=== PATIENT | female | born 1950 | race Caucasian/White ===

== ENCOUNTER 2016-07-15 12:33 | Inpatient (IN) | payer MEDICARE, OTHER ==
[~2016-07-15] VITALS: Ht 165.1 cm; Wt 70.4 kg
[~2016-07-15 12:33] MED LIST: ALBU1.25 NEB; ALBU2.5V5 NEB; ALBU8.5H8 INH; ALPR0.25 PO; ALPR1TAB6 PO; BUSP10TA PO; CALC-30 PO; CITA40TA5 PO; COLE625T12 PO; CYAN10005 PO; DOCU-109 PO; ENOX80DI3 SQ; FEXO-149 PO; FOLI1TAB16 PO; HYDR-2758 PO; HYDR50CA2 PO; LAMO100T5 PO; MECL25TA3 PO; MIRT30TA3 PO; MONT10TA6 PO; MULT1TAB52 PO; Nicotine TD; PRAZ1CAP2 PO; QUET100T4 PO; QUET200T6 PO; SERT100T8 PO; TRAV5DRO EACHEYE; WARF7.5T48 PO; Warfarin Sodium MC; ZOLP12.54 PO; ZOLP5TAB PO; ZOLP5TAB5 PO
--- NOTE | 2016-07-15 13:20 | RAD ---
Indication: Cough. Time of exam 1312 hours. Correlation is made with prior study from 02/12/2016. The heart size is normal. The lungs are clear. No effusion or pneumothorax is seen. Postop changes to the right humerus are noted. Impression: No acute cardiopulmonary process is detected.
--- NOTE | 2016-07-15 13:24 | EKG ---
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
[2016-07-15 13:32] LABS: BASO # 0.1 x10^3/uL (0.0-0.2); BASO % 1 % (0-3); EOS % 0 % (0-3); HEMATOCRIT 42.5 % (36.0-47.0); HEMOGLOBIN 14.5 g/dL (12.0-15.5); LYMPH # 0.7 x10^3/uL (1.0-4.8); LYMPH % 9 % (24-48); MEAN CORPUSCULAR HEMOGLOBIN 34 pg (25-35); MEAN CORPUSCULAR HGB CONC 34 g/dL (31-37); MEAN CORPUSCULAR VOLUME 99 fL (79-100); MONO # 0.2 x10^3/uL (0.0-1.1); MONO % 2 % (0-9); NEUT # 7.2 x10^3uL (1.8-7.7); NEUT % 88 % (31-73); PLATELET COUNT 297 x10^3/uL (140-400); RED BLOOD COUNT 4.29 x10^6/uL (3.50-5.40); RED CELL DISTRIBUTION WIDTH 14.7 % (11.5-14.5); WHITE BLOOD COUNT 8.1 x10^3/uL (4.0-11.0)
[2016-07-15 13:48] LABS: ALBUMIN 3.6 g/dL (3.4-5.0); ALBUMIN/GLOBULIN RATIO 0.9 (1.0-1.7); CALCIUM 9.4 mg/dL (8.5-10.1); CREATININE 1.1 mg/dL (0.6-1.0); POTASSIUM 4.1 mmol/L (3.5-5.1); TOTAL BILIRUBIN 0.3 mg/dL (0.2-1.0); TOTAL PROTEIN 7.8 g/dL (6.4-8.2)
[2016-07-15] MEDS ORDERED: methylPREDNISolone SOD SUCC PF 125 MG/2 ML VIAL. IV ONE (15:30)
[2016-07-15] MEDS ORDERED: AZITHROMYCIN 500 MG in IV NORMAL SALINE 250ML 250 ML IV ONE (15:30)
[2016-07-15] MEDS ORDERED: IV NORMAL SALINE 50ML 50 ML ONE (17:21)
[2016-07-15] MEDS ORDERED: cefTRIAXone SODIUM 1 GM VIAL IV ONE (17:21)
[2016-07-15] MEDS ORDERED: IV NORMAL SALINE 250ML 250 ML ONE (17:21)
[2016-07-15] MEDS ORDERED: AZITHROMYCIN 500 MG VIAL. IV ONE (17:21)
[2016-07-15 19:22] VITALS: BP 124/82
--- NOTE | 2016-07-15 21:40 | NUR ---
The patient, VIDHI TRAN, 66 y/o, F admitted by DANIEL KAPLAN MD, was given written information regarding hospital policies, unit procedures and contact persons. Pt arrived to room 121 via gurney, accompanied by [facility] and ED staff. Dx: COPD. POC discussed, V/U. Call light within reach. PMH reviewed with pt, but pt is unsure of home meds, only has partial list. Will check with in AM. Valuables were checked and logged. Left in room with patient.
[2016-07-15 22:18] VITALS: BP 170/85
[2016-07-15] MEDS: ZOLPIDEM 5 MG TABLET. PO PRN (22:47)
[2016-07-16] MEDS ORDERED: NICO1PAT21 TP (00:48)
[2016-07-16] MEDS ORDERED: LATA2.5D2 EACHEYE (00:48)
[2016-07-16] MEDS ORDERED: GUAI-40 PO (00:49)
[2016-07-16] MEDS ORDERED: AMOX1TAB11 PO (00:50)
[2016-07-16] MEDS ORDERED: PRED20TA PO (00:51)
[2016-07-16] MEDS: ENOXAPARIN ** NOTE DOSE ** SYRINGE SQ SCH ×2 (02:15→09:41)
[2016-07-16] MEDS ORDERED: ESOM40CA PO (02:35)
[2016-07-16 04:18] LABS: BASO % 1 % (0-3); EOS % 0 % (0-3); HEMATOCRIT 41.1 % (36.0-47.0); HEMOGLOBIN 13.8 g/dL (12.0-15.5); LYMPH # 1.3 x10^3/uL (1.0-4.8); LYMPH % 13 % (24-48); MEAN CORPUSCULAR HEMOGLOBIN 33 pg (25-35); MEAN CORPUSCULAR HGB CONC 34 g/dL (31-37); MEAN CORPUSCULAR VOLUME 99 fL (79-100); MONO # 0.4 x10^3/uL (0.0-1.1); MONO % 4 % (0-9); NEUT # 7.8 x10^3uL (1.8-7.7); NEUT % 82 % (31-73); PLATELET COUNT 300 x10^3/uL (140-400); RED BLOOD COUNT 4.17 x10^6/uL (3.50-5.40); RED CELL DISTRIBUTION WIDTH 14.6 % (11.5-14.5); WHITE BLOOD COUNT 9.6 x10^3/uL (4.0-11.0)
[2016-07-16 04:37] LABS: ALBUMIN 3.2 g/dL (3.4-5.0); ALBUMIN/GLOBULIN RATIO 0.8 (1.0-1.7); CALCIUM 9.1 mg/dL (8.5-10.1); GFR 55.8; TOTAL BILIRUBIN 0.2 mg/dL (0.2-1.0); TOTAL PROTEIN 7.3 g/dL (6.4-8.2)
[2016-07-16] MEDS: methylPREDNISolone SOD SUCC PF 125 MG/2 ML VIAL. IV SCH ×4 (05:01→20:55)
[2016-07-16 05:08] VITALS: BP 164/88
[2016-07-16] MEDS: IPRATRPIUM/ALBUTEROL 0.5/2.5MG 3 ML NEBU. NEB SCH ×4 (05:25→21:04)
[2016-07-16] MEDS ORDERED: IOHEXOL 300 MG/ML 75 ML VIAL. IV ONE (08:45)
--- NOTE | 2016-07-16 09:10 | RAD ---
Indication: Shortness of air and cough with elevated d-dimer. Axial imaging through the chest was performed after the administration of intravenous contrast and utilizing the CT angiography protocol. Multiplanar, 3-D and MIP reformations were also performed. Comparison is made with prior CT chest from 02/12/2016. Left thyroid calcified mass is again noted. Evaluation of the pulmonary arterial system is without evidence of thromboembolism. No filling defects are identified. The thoracic aorta is normal caliber. No dissection is detected. No pericardial or pleural fluid is identified. There is a moderate sized hiatal hernia. Significant emphysematous changes are identified in both lungs. No parenchymal mass or infiltrate is seen. There is dependent atelectasis in the lung bases. The upper abdomen is unremarkable. Impression: 1. No evidence of pulmonary embolism or thoracic aortic dissection. 2. Emphysematous changes and moderate-sized hiatal hernia. PQRS Compliance Statement: One or more of the following individualized dose reduction techniques were utilized for this examination: 1. Automated exposure control 2. Adjustment of the mA and/or kV according to patient size 3. Use of iterative reconstruction technique
[2016-07-16] MEDS: AZITHROMYCIN 250 MG TABLET. PO SCH (09:41)
[2016-07-16] MEDS: NICOTINE 21MG PATCH. TD SCH (09:42)
[2016-07-16 10:17] VITALS: BP 149/94
--- NOTE | 2016-07-16 14:39 | PHYS DOC ---
Past History Past Medical History: Bipolar, COPD, Schizophrenia Past Surgical History: Cholecystectomy Smoking: Cigarettes Alcohol Use: Heavy Additional Alcohol Information: daily Drug Use: None Adult General Chief Complaint Chief Complaint: COUGH HPI HPI Patient is a 66 year old F who presents with worsening COPD. Pt has had cough and shortness of breath for several weeks. Seen by PCP last and started on prednisone, albuterol, and Augmentin. Pt was seen at PCP office today and has not improved so sent to ER. Pt thinks she feels ok but son who is here in ER with pt states she has not gotten any better. Pt states she does feel short of air. No chest pain, no abdominal pain, no N/V/D, no fever or chills Pt has failed out pt treatment for COPD exacerbation and will need admission per PCP pt is not on home o2 Review of Systems Review of Systems Constitutional: Denies fever or chills Eyes: Denies change in visual acuity, redness, or eye pain HENT: Denies nasal congestion or sore throat Respiratory: cough and shortness of breath Cardiovascular: No additional information not addressed in HPI GI: Denies abdominal pain, nausea, vomiting, bloody stools or diarrhea : Denies dysuria or hematuria Musculoskeletal: Denies back pain or joint pain Integument: Denies rash or skin lesions Neurologic: Denies headache, focal weakness or sensory changes Allergies Allergies Allergies Coded Allergies Type Severity Reaction Last Updated Verified No Known Drug Allergies 11/19/13 No Physical Exam Physical Exam Constitutional:, non-toxic appearance. mild respiratory distress HENT: Normocephalic, atraumatic, bilateral external ears normal, oropharynx moist, no oral exudates, nose normal. ] Eyes: PERRL, EOMI, conjunctiva normal, no discharge. Neck: Normal range of motion, no tenderness, supple, no stridor. Cardiovascular:Heart rate regular rhythm, no murmur Lungs & Thorax: Bilateral inspiratory and expiratory wheezing with scattered rhonchi Abdomen: Bowel sounds normal, soft, no tenderness, no masses, no pulsatile masses. Skin: Warm, dry, no erythema, no rash. Back: No tenderness, no CVA tenderness. Neurologic: Alert and oriented X 3, normal motor function, normal sensory function, no focal deficits noted. [] Psychologic: Affect normal, judgement normal, mood normal. ] Current Patient Data Vital Signs vital signs reviewed and stable Vital Signs Date Time Temp Pulse Resp B/P (MAP) Pulse Ox O2 Delivery O2 Flow Rate FiO2 07/16/16 10:57 96 Room Air 07/16/16 10:17 98.3 62 149/94 (112) 07/16/16 05:08 18 Lab Results Laboratory Tests Test 07/15/16 22:01 07/16/16 03:55 Troponin I Quantitative < 0.017 ng/mL (0-0.055) < 0.017 ng/mL (0-0.055) White Blood Count 9.6 x10^3/uL (4.0-11.0) Red Blood Count 4.17 x10^6/uL (3.50-5.40) Hemoglobin 13.8 g/dL (12.0-15.5) Hematocrit 41.1 % (36.0-47.0) Mean Corpuscular Volume 99 fL (79-100) Mean Corpuscular Hemoglobin 33 pg (25-35) Mean Corpuscular Hemoglobin Concent 34 g/dL (31-37) Red Cell Distribution Width 14.6 % (11.5-14.5) H Platelet Count 300 x10^3/uL (140-400) Neutrophils (%) (Auto) 82 % (31-73) H Lymphocytes (%) (Auto) 13 % (24-48) L Monocytes (%) (Auto) 4 % (0-9) Eosinophils (%) (Auto) 0 % (0-3) Basophils (%) (Auto) 1 % (0-3) Neutrophils # (Auto) 7.8 x10^3uL (1.8-7.7) H Lymphocytes # (Auto) 1.3 x10^3/uL (1.0-4.8) Monocytes # (Auto) 0.4 x10^3/uL (0.0-1.1) Eosinophils # (Auto) 0.0 x10^3/uL (0.0-0.7) Basophils # (Auto) 0.0 x10^3/uL (0.0-0.2) Sodium Level 143 mmol/L (136-145) Potassium Level 4.0 mmol/L (3.5-5.1) Chloride Level 109 mmol/L (98-107) H Carbon Dioxide Level 23 mmol/L (21-32) Anion Gap 11 (6-14) Blood Urea Nitrogen 17 mg/dL (7-20) # Creatinine 1.0 mg/dL (0.6-1.0) Estimated GFR (Cockcroft-Gault) 55.8 BUN/Creatinine Ratio 17 (6-20) Glucose Level 105 mg/dL (70-99) H Calcium Level 9.1 mg/dL (8.5-10.1) Total Bilirubin 0.2 mg/dL (0.2-1.0) Aspartate Amino Transferase (AST) 17 U/L (15-37) Alanine Aminotransferase (ALT) 22 U/L (14-59) Alkaline Phosphatase 110 U/L (46-116) Total Protein 7.3 g/dL (6.4-8.2) Albumin 3.2 g/dL (3.4-5.0) L Albumin/Globulin Ratio 0.8 (1.0-1.7) L Microbiology 07/15/16 Blood Culture - Preliminary, Resulted NO GROWTH AFTER 1 DAY EKG EKG EKG 1319 sinus rhythm with non specific st t wave changes, no STEMI [] Radiology/Procedures Radiology/Procedures PATIENT: VIDHI TRAN ACCOUNT: [id number] : 1950 LOCATION: ER AGE: 66 SEX: F EXAM STATUS: REG ER ORD. PHYSICIAN: HENRY STREET MD REASON: dyspnea PROCEDURE: CHEST AP ONLY Indication: Cough. Time of exam 1312 hours. Correlation is made with prior study from 02/12/2016. The heart size is normal. The lungs are clear. No effusion or pneumothorax is seen. Postop changes to the right humerus are noted. Impression: No acute cardiopulmonary process is detected. DICTATED AND SIGNED BY: MAURO MOODY MD DATE: 07/15/16 1317 CC: HENRY STREET MD; HIGINIO ELIZABETH MD ~ [] Course & Med Decision Making Course & Med Decision Making Pertinent Labs and Imaging studies reviewed. (See chart for details) Pt failed outpt tx for COPD exacerbation will admit Dragon Disclaimer Dragon Disclaimer This chart was dictated in whole or in part using Voice Recognition software in a busy, high-work load, and often noisy Emergency Department environment. It may contain unintended and wholly unrecognized errors or omissions. Departure Departure: Impression: Primary Impression: COPD exacerbation Disposition: ADMITTED INPATIENT Condition: HENRY BRICENO MD July 16, 2016 14:39
[2016-07-16 15:25] VITALS: BP 163/90
[2016-07-16 18:00] VITALS: BP 150/92
--- NOTE | 2016-07-16 18:32 | HP ---
ADMIT DATE: HISTORY OF PRESENT ILLNESS: The patient is a 66-year-old female patient who apparently was seen at ____ to the Emergency Room for further evaluation. She apparently was seen by her primary care physician last and started her on prednisone, albuterol and Augmentin and she was seen yesterday at her primary care physician's office as she has not improved. She was sent to the ER. The patient herself stated that she was feeling okay, although her son said that she has not got any better. She did complain of having shortness of breath, denied any chest pain, no abdominal pain, no nausea, vomiting, no fevers, chills or rigors. She has failed outpatient treatment for COPD exacerbation and will need admission per her primary care physician. She was basically evaluated in the Emergency Room. Her white cell count was normal at 8100 and her chemistry was unremarkable. She did have an x-ray, which showed no acute cardiopulmonary process detected and in fact, she also underwent CT angiogram which showed that she has a left thyroid calcified mass noted. Evaluation of the pulmonary arterial system is without evidence of thromboembolism, no filling defects are identified, the thoracic aorta is normal in caliber, no dissection is detected, no pericardial or pleural fluid is identified. There is a moderate sized hiatal hernia. Significant emphysematous changes are identified in both lungs. No parenchymal mass or infiltrate are seen. There is dependent atelectasis in the lung bases. The upper abdomen is unremarkable. The patient was started on IV antibiotic in the form of ceftriaxone as well as Zithromax, IV steroids and inhalers. PAST MEDICAL HISTORY: Significant for bipolar disorder, schizophrenia, and chronic obstructive pulmonary disease. PAST SURGICAL HISTORY: Significant for cholecystectomy. She is also known to have hiatal hernia repair, bilateral cataract extraction, right shoulder surgery, esophagogastroduodenoscopy and colonoscopy. ALLERGIES: She has no known drug allergies. MEDICATIONS: She is currently on albuterol sulfate 2.5 mg per 3 mL via nebulizer every 6 hours, she is also on inhaler every 4 hours, alprazolam 1 mg 4 times a day, Colace 100 mg twice a day, Nexium 40 mg once a day, folic acid 1 mg tablet once a day, lamotrigine 100 mg twice a day, latanoprost 2.5 mg 1 drop to both eyes at bedtime, nicotine patch 21 mg topically once a day, prazosin 2 mg at bedtime, quetiapine fumarate 600 mg at bedtime, quetiapine fumarate extended release 200 mg daily, sertraline 200 mg daily and Ambien 5 mg at bedtime. PHYSICAL EXAMINATION: GENERAL: On examining her on arrival to the Emergency Room, she looked well and was clearly in no apparent respiratory distress, pale, but no jaundice, cyanosis, or thyromegaly. No jugular venous distention. No limb edema. VITAL SIGNS: Her heart rate was 71, blood pressure was 170/85, temperature was 98.3, respiratory rate was 16 and oxygen saturation was 93%. HEAD, EYES, EARS, NOSE AND THROAT: Showed normocephalic, atraumatic. NECK: Supple. HEART: Showed normal first and second heart sounds with no gallop, rub or murmur. CHEST: Shows central trachea, equal bilateral chest expansion, air entry, vesicular sounds with bilateral scattered rhonchi. I could not appreciate any crepitation. ABDOMEN: Distended, soft, nontender. NEUROLOGIC: She is awake, alert, responding appropriately. Cranial nerves are intact. EXTREMITIES: She moves extremities without difficulty. She ambulates without assistance or assistive devices. LABORATORY DATA: On admission showed a white cell count of 8100, hemoglobin 14.5, hematocrit 42, MCV 99 and platelet count of 297,000. Her chemistry showed a serum sodium 142, potassium 4.2, chloride 108, bicarbonate 27, anion gap of 7, BUN 11, creatinine 1.1, estimated GFR was 50 mL per minute. Her glucose 128, calcium was 9.4. Total bilirubin, AST, ALT, alkaline phosphatase were normal. Her CK was high at 390; however, her first troponin was 0.017. Total protein was 7.8, albumin 3.6. Her D-dimer was high at 0.87. She did have a chest x-ray, which showed that she has no cardiopulmonary abnormalities. CT scan of the chest with PE protocol showed no evidence of pulmonary embolism, thoracic aortic dissection, emphysematous changes and moderate sized hiatal hernia. ASSESSMENT AND PLAN: The patient was admitted to continue with IV antibiotic in the form of ceftriaxone as well as Zithromax, nebulized albuterol and Atrovent and methylprednisolone. She was also put on Lovenox 70 mg twice a day. She has also 2 more sets of cardiac enzyme and to consult the cardiology team. DANIEL KAPLAN MD DR: ESTEPHANIA/james JOB#: [id number] / [id number]
[2016-07-16 22:56] VITALS: BP 161/95
[2016-07-16] MEDS: ZOLPIDEM 5 MG TABLET. PO PRN (23:35)
--- NOTE | 2016-07-16 23:43 | PN ---
DATE: 07/16/2016 SUBJECTIVE: The patient is a 66-year-old female patient who was admitted yesterday with COPD exacerbation. On questioning her, she continues to have cough with yellowish sputum, although she is generally feeling much better. She did have some chest tightness and wheezing, although according to her is much improved. PHYSICAL EXAMINATION: GENERAL: When I examined her, she was sitting on the edge of the bed comfortably in no apparent respiratory distress, pale, but no jaundice, cyanosis, or thyromegaly. No jugular venous distention. No limb edema. VITAL SIGNS: Her heart rate was 62, blood pressure 149/94, temperature was 98.3, respiratory rate was 18, and oxygen saturation was 92% on room air. HEAD, EYES, EARS, NOSE AND THROAT: Showed normocephalic, atraumatic. NECK: Supple. HEART: Showed normal first and second heart sounds with no gallop, rub or murmur. CHEST: Showed central trachea, equally reduced expansion, decreased air entry and few scattered rhonchi. I could not appreciate any crepitation. ABDOMEN: Distended, soft, nontender. NEUROLOGIC: She is awake, alert, responding appropriately. Cranial nerves intact. She moves extremities without difficulty. She ambulates without assistance or assistive devices. Her intake was 880, output was 350. LABORATORY DATA: Her lab work as of this morning showed that her serum sodium was 143, potassium 4, chloride 109, bicarbonate 23, anion gap of 11, BUN 17, creatinine 1, estimated GFR was 55 mL per minute. Her glucose 105, calcium was 9.1. Total bilirubin, AST, ALT, alkaline phosphatase were normal. Her total protein was 7.3, albumin was 3.2. Her white cell count was 9600, hemoglobin 13.8, MCV was 99 and platelet count of 300,000 with normal manual differential. ASSESSMENT: 1. Acute bronchitis. 2. Chronic obstructive pulmonary disease exacerbation. PLAN: The plan is to continue with IV Solu-Medrol. Continue with ceftriaxone and oral Zithromax. Continue with nebulizer with Atrovent. I will cut down the Lovenox to 40 mg once a day. We will evaluate her again tomorrow and if she is feeling better, we can discharge her to continue on oral antibiotics and tapering course of steroids. DANIEL KAPLAN MD DR: Blanche JOB#: [id number] / [id number]
[2016-07-17] VITALS (12 sets, daily range): BP systolic 82–182; BP diastolic 51–96
--- NOTE | 2016-07-17 01:06 | ACF ---
Admission Criteria Forms COPD Clinical Indications for Admission to Inpatient Care (Place 'X' for any and all applicable criteria): Admission is indicated for ANY ONE of the following (1)(2)(3): [X ]I. Acute exacerbation by high-risk comorbidity (e.g., pneumonia, dysrhythmia, heart failure, pleural effusion, pneumothorax) or severe underlying COPD (e.g., steroid dependent) [ ]II. Inpatient admission required rather than observation care (see Chronic Obstructive Pulmonary Disease: Observation Care) because of ANY ONE of the following: [ ]a) New or pre-existing signs or symptoms of COPD (eg, dyspnea or Tachypnea at rest or with minimal activity) that persist despite outpatient and observation care treatment [ ]b) New-onset hypoxemia (room air SaO2 less than 90%, PO2 less than 60 mm Hg (8.0 kPa)) that persists despite outpatient and observation care treatment [ ]c) Worsening of pre-existing hypoxemia (eg, new or increased requirement for supplemental oxygen to maintain oxygenation at baseline level) that persists despite outpatient and observation care treatment, with oxygen treatment needs performable only in acute inpatient setting [ ]d) Hypercarbia (PCO2 greater than 40 mm Hg (5.3 kPa))-induced respiratory acidosis (pH less than 7.35) that persists despite outpatient and observation care treatment [ ]e) Supplemental oxygen or respiratory treatments for over 24 hours that are performable only in acute inpatient setting [ ]f) Chest tube placement with active evacuation (e.g., suction, drainage) (5) [ ]g) Other condition, treatment or monitoring requiring inpatient admission [ ]III. Planned invasive surgical or diagnostic procedures requiring acute- care hospitalization [ ]IV. Acute respiratory failure (e.g., uncompensated hypercarbia, severe hypoxemia) [ ]V. Severe comorbid condition (e.g., severe steroid myopathy, acute vertebral fracture) that has acutely worsened pulmonary function [ ]. Confusion state, lethargy, obtundation, stupor or coma Extended stay beyond goal length of stay may be needed for (31)(32): [ ]a ) Respiratory Failure. [ ]b) Severe or persisting hypoxemia or hypercarbia [ ]c) Severe or persistent dyspnea [ ]d) Comorbidities (e.g. chronic heart failure, atrial fibrillation with rapid response, pneumonia) [ ]e) Malnutrition The original [facility] content created by Ryanne Marino has been revised. The portions of the content which have been revised are identified through the use of italic text or in bold, and [facility] has neither reviewed nor approved the modified material. All other unmodified content is copyright [facility]. Please see references footnoted in the original [facility] edition 2016 Admission Criteria Met?: Yes ANTELMO GARCIA July 17, 2016 01:06
[2016-07-17] MEDS ORDERED: ALBUTEROL SULFATE 8GM INHALER. INH PRN (02:00)
[2016-07-17] MEDS ORDERED: DOCUSATE SODIUM 100 MG CAPSULE PO PRN (02:00)
[2016-07-17] MEDS ORDERED: ALBUTEROL SULFATE 2.5 MG/3 ML NEBU. NEB PRN (02:00)
[2016-07-17] MEDS: methylPREDNISolone SOD SUCC PF 125 MG/2 ML VIAL. IV SCH ×3 (05:10→21:16)
[2016-07-17] MEDS: IPRATRPIUM/ALBUTEROL 0.5/2.5MG 3 ML NEBU. NEB SCH ×4 (05:43→20:45)
[2016-07-17 06:50] LABS: BASO # 0.1 x10^3/uL (0.0-0.2); BASO % 1 % (0-3); EOS % 0 % (0-3); HEMATOCRIT 43.7 % (36.0-47.0); HEMOGLOBIN 14.9 g/dL (12.0-15.5); LYMPH # 1.1 x10^3/uL (1.0-4.8); LYMPH % 9 % (24-48); MEAN CORPUSCULAR HEMOGLOBIN 33 pg (25-35); MEAN CORPUSCULAR HGB CONC 34 g/dL (31-37); MEAN CORPUSCULAR VOLUME 97 fL (79-100); MONO # 0.5 x10^3/uL (0.0-1.1); MONO % 4 % (0-9); NEUT # 10.6 x10^3uL (1.8-7.7); NEUT % 86 % (31-73); PLATELET COUNT 289 x10^3/uL (140-400); RED CELL DISTRIBUTION WIDTH 14.3 % (11.5-14.5); WHITE BLOOD COUNT 12.3 x10^3/uL (4.0-11.0)
[2016-07-17 06:53] LABS: CALCIUM 9.7 mg/dL (8.5-10.1); CREATININE 0.9 mg/dL (0.6-1.0); POTASSIUM 3.5 mmol/L (3.5-5.1)
[2016-07-17] MEDS: PANTOPRAZOLE 40 MG TABLET. PO SCH (07:30)
[2016-07-17] MEDS ORDERED: QUETIAPINE FUMARATE 200 MG PO SCH (09:00)
[2016-07-17] MEDS: AZITHROMYCIN 250 MG TABLET. PO SCH (09:00)
[2016-07-17] MEDS: SERTRALINE 100 MG TABLET. PO SCH (09:00)
[2016-07-17] MEDS: FOLIC ACID 1 MG TABLET PO SCH (09:00)
[2016-07-17] MEDS: lamoTRIgine 100 MG TABLET. PO SCH ×2 (09:00→20:02)
[2016-07-17] MEDS: ONDANSETRON PF 4 MG/2 ML VIAL. IV PRN ×2 (09:13→16:57)
--- NOTE | 2016-07-17 09:28 | RAD ---
Exam performed: CT scan of the head without contrast. Date of Service: 07/17/16. Comparison: 03/13/15. Clinical History: Possible seizure, stroke protocol, spasm left side of the body. Technique: Helical acquisitions are obtained from the foramen magnum to the vertex without intravenous administration of contrast. Findings: The ventricles are midline without evidence of dilatation. Mild atrophy is seen. Normal perdomo-white differentiation is maintained. There is no extra axial fluid collection, intraparenchymal hemorrhage or mass lesion. The visualized portions of the orbits, paranasal sinuses and the mastoid air cells appear clear. The calvarium is intact. Impression: 1. No acute intracranial process detected. Results of this negative stroke protocol CT scan of the brain were given to, Marilia , the nurse taking care of the patient soon after completion of study at 9:25 AM PQRS Compliance Statement: One or more of the following individualized dose reduction techniques were utilized for this examination: 1. Automated exposure control 2. Adjustment of the mA and/or kV according to patient size 3. Use of iterative reconstruction technique
--- NOTE | 2016-07-17 09:41 | EKG ---
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
--- NOTE | 2016-07-17 09:47 | NUR ---
Nursing Note: At approximately 0845, it was brought to the attention of this nurse by another nurse that the patient appeared to be having a seizure. Upon entering the patient's room, the patient was noted to be lying across the foot of the bed with her legs hanging off of one end and her head off of the other end. The second nurse, ADRIANA Grady, was sitting at the patient's head providing support. The patient did not appear to be having any abnormal movements at the time that this nurse entered the room, but did appear to be tensed up. Her eyes were open but were not focused. The patient began to become more alert and this nurse, the second nurse, and a CENTRAL MELT SPECIALIST assisted the patient to a sitting position. The patient began to yell and flail her arms at staff but calmed almost immediately. The patient was assisted back towards the center of the bed and assessed. Patient could give her first name but could not recall her last name. Patient stated that she did not know the date or year and that she did not know where she was. After telling the patient that she was at [facility], the patient stated "I don't understand." Vital signs assessed and blood pressure noted to be high. Patient noted to be nauseated and diaphoretic. Blood sugar noted to be within acceptable range. 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 Dr. Castro notified of patient's change and new orders received. STAT EKG, CT Head, ABGs, and Dr. Hartman consult ordered. Patient given PRN Zofran for nausea. Patient went down for CT accompanied by Paulina, [employer] Systems Superintendent. It was reported to this nurse that the patient became nauseous again during test. After returning to her room, patient reassessed and was able to answer first and last name, year, and location correctly and could follow commands. 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 STAT EKG and ABGs performed and Dr. Hartman here to see patient at this time. Patient continues to state that she feels dizzy and nauseous. Patient sitting up in bed with cold compress to the back of her neck and a bucket in case of emesis. Will continue to monitor.
[2016-07-17 09:51] LABS: BGAS PH 7.44 (7.35-7.45)
[2016-07-17] MEDS: ENOXAPARIN 40 MG/0.4 ML DISP.SYRIN. SQ SCH (10:19)
[2016-07-17] MEDS: NICOTINE 21MG PATCH. TD SCH (10:19)
--- NOTE | 2016-07-17 12:06 | CONS ---
DATE OF CONSULTATION: 07/17/2016 REFERRING PHYSICIAN: Burke Castro MD REASON FOR CONSULTATION: Acute mental status changes, rule out seizure. HISTORY OF PRESENT ILLNESS: This is a 66-year-old right-handed white female who was admitted through Emergency Room on 07/16/2016 with diagnosis of exacerbation of COPD and acute bronchitis, has been on antibiotics. According to the nursing staff, she had a spell this morning, described as acute change in mental status. The patient was seen lying across the bed and has mild abnormal movements of entire body. She was confused and disoriented. It lasted approximately 10-15 minutes before she started regaining her consciousness. The patient complains of dizziness and severe nausea. She has not had any vomiting at this time. She denies headaches, visual disturbances, weakness, numbness or paresthesia. She denied dysarthria or dysphagia. The patient also complains of chest discomfort. Initial nonenhanced head CT scan performed this morning revealed no acute intracranial process. PAST MEDICAL HISTORY: Significant for COPD, GERD, schizophrenia and bipolar disorder. PAST SURGICAL HISTORY: Significant for cholecystectomy, hiatal hernia repair, bilateral cataract extraction and right shoulder surgery. SOCIAL HISTORY: The patient is . She is a smoker. She denies alcohol drinking or illicit drug use. CURRENT MEDICATIONS: Prazosin 2 mg at bedtime, Xalatan eyedrops, Zofran 4 mg q. 6 hours p.r.n., IV sertraline 200 mg daily, lamotrigine 200 mg b.i.d., folic acid 1 mg daily, Lovenox 40 mg subcutaneous daily, Protonix 40 mg p.o. daily, alprazolam 1 mg q.i.d. p.r.n. for anxiety, nicotine patches, antibiotic ceftriaxone and azithromycin, nebulizer of albuterol and zolpidem 5 mg at bedtime p.r.n. for insomnia. ALLERGIES: No known drug allergies. PHYSICAL EXAMINATION: GENERAL: Well-developed, well-nourished white female, not in acute distress. She weighs 154 pounds. VITAL SIGNS: Blood pressure 145/85, respiratory rate 20, pulse is 71, temperature 98.1 and oxygen saturation 93% on room air. HEENT: Normocephalic, atraumatic, otherwise unremarkable. NECK: Supple, negative for carotid bruit, lymphadenopathy or thyromegaly. LUNGS: With diminished breath sounds, scattered rhonchi heard bilaterally. ABDOMEN: Soft, bowel sounds positive. EXTREMITIES: Negative for cyanosis, clubbing or pitting edema. NEUROLOGICAL EXAMINATION: MENTAL STATUS: The patient is alert and oriented x 3. The speech is fluent. There is no language dysfunction. Memory, the patient recalls 2/3 immediately and after 1 and 3 minutes. Judgment and abstract thinking are normal. The patient denies hallucination or delusion. CRANIAL NERVES: Visual drake are full. The pupils are reactive to light and accommodation. The extraocular movements are intact. There is no nystagmus. Hearing is intact bilaterally. The palate is elevated symmetrically. Sternocleidomastoid muscles are powerful bilaterally. The patient shrugs her shoulders symmetrically and protrudes her tongue in the midline without fasciculation or atrophy. Motor examination revealed no focal muscle bulk was seen. The tone is normal. The strength is 5/5 throughout. Sensory examination revealed normal pinprick, light touch, vibratory and position senses. Deep tendon reflexes were symmetric and active at 3/4 bilaterally. Gait not tested at this time. The coordination is otherwise normal. LABORATORY DATA: CBC revealed white blood cells of 12,300, hemoglobin 14.9, hematocrit 43.7 and platelet count 289,000. Chemistry revealed sodium of 143, potassium 3.5, chloride 106, CO2 of 26, BUN 12, creatinine 0.9, glucose 109 and calcium 9.7. D-dimer is high at 0.837. DIAGNOSTIC DATA: Head CT scan as described above. Negative for acute intracranial process. CT angio negative for pulmonary embolism, but shows emphysematous changes consistent with COPD and chest x-ray revealed no evidence of acute cardiopulmonary process. EKG revealed normal sinus rhythm without acute changes. IMPRESSION: 1. New onset of confusion, etiology uncertain, rule out seizure; however, the patient was not hypoxic. 2. Chronic obstructive pulmonary disease exacerbation and acute bronchitis. 3. Multiple psychiatric problems include bipolar disorder, schizophrenia versus anxiety. RECOMMENDATION: 1. We will obtain an EEG. 2. Continue with current management initiated by Dr. Castro. M Avis ALBERT MD DR: LIZA/james JOB#: [id number] / [id number]
[2016-07-17] MEDS ORDERED: LORazepam 2 MG/ML VIAL ONE (13:56)
--- NOTE | 2016-07-17 14:41 | NUR ---
NURSING NOTE: At approximately 1350, this nurse and Dr. Castro entered the patient room to speak to and assess the patient. The patient spoke clearly to Dr. Castro and answered his first 2-[address] Castro continued to assess the patient, the patient began to have a hard time answering and began to stumble on her words. The patient appeared to become frustrated and then tensed up and grunted loudly. Dr. Castro asked this nurse to obtain 2 mg Ativan from [employer] and the dose was administered intravenously. Dr. Castro stated that the patient should be transferred to the ICU for closer monitoring. The patient became agitated and began ripping off her clothes, telemetry leads, kicking her legs, and grabbing at anything that she could reach. Patient began to climb around on the bed and repeatedly through her arms and legs off of the bed. Patient's gown and underwear had to be changed d/t the patient had begun to sweat and had been incontinent of bladder. Patient began pulling at her rings and watch and these items were removed from her person in order to prevent injury. Patient was moved to ICU by bed and new orders received from Dr. Castro. Report given to ICU nurse on arrival. Patient to remain med/surg status. Message left for patient's but no return call received at this time. Dr. Hartman notified of event and of transfer.
[2016-07-17] MEDS: LORazepam 2 MG/ML VIAL IV PRN ×3 (14:55→20:01)
--- NOTE | 2016-07-17 15:00 | NUR ---
Pt brought to ICU per south. Pt very Altered and moving constantly. Pt unable to make comprehensive sentences. PT complaining of nose pain. PT unable to follow commands PT danger to self at this point and made a one to one observation. Spoke to Dr Castro and Minnie See orders. Rachelle Cadet
[2016-07-17] MEDS: ALPRAZolam 0.5 MG TABLET PO PRN (16:57)
[2016-07-17] MEDS: QUEtiapine 100 MG TABLET. PO SCH (20:02)
[2016-07-17] MEDS: LATANOPROST 0.005% OPHTH SOLUTION 2.5ML BOTTLE. OU SCH (20:03)
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
[2016-07-17] MEDS: PRAZOSIN 1 MG CAPSULE. PO SCH (21:00)
--- NOTE | 2016-07-17 21:00 | NUR ---
All of Rings and watch were given to per patients request at this time.
[2016-07-18] VITALS (17 sets, daily range): BP systolic 95–138; BP diastolic 54–85
[2016-07-18] MEDS: IPRATRPIUM/ALBUTEROL 0.5/2.5MG 3 ML NEBU. NEB SCH ×4 (05:27→21:23)
[2016-07-18] MEDS: methylPREDNISolone SOD SUCC PF 125 MG/2 ML VIAL. IV SCH (05:36)
[2016-07-18 06:16] LABS: HEMATOCRIT 37.8 % (36.0-47.0); HEMOGLOBIN 12.9 g/dL (12.0-15.5); RED BLOOD COUNT 3.88 x10^6/uL (3.50-5.40); RED CELL DISTRIBUTION WIDTH 14.5 % (11.5-14.5); WHITE BLOOD COUNT 11.3 x10^3/uL (4.0-11.0)
[2016-07-18 06:28] LABS: ALBUMIN 3.2 g/dL (3.4-5.0); ALBUMIN/GLOBULIN RATIO 0.9 (1.0-1.7); CALCIUM 8.8 mg/dL (8.5-10.1); GFR 55.8; POTASSIUM 3.8 mmol/L (3.5-5.1); TOTAL BILIRUBIN 0.4 mg/dL (0.2-1.0); TOTAL PROTEIN 6.8 g/dL (6.4-8.2)
[2016-07-18] MEDS ORDERED: POTASSIUM CHLORIDE 20 MEQ TABLET.ER. PO SCH (07:00)
--- NOTE | 2016-07-18 07:26 | NUR ---
Pt sleeping at this time. Will continue to monitor. Rachelle WRIGHT
[2016-07-18] MEDS: ENOXAPARIN 40 MG/0.4 ML DISP.SYRIN. SQ SCH (08:37)
[2016-07-18] MEDS: SERTRALINE 100 MG TABLET. PO SCH (08:37)
[2016-07-18] MEDS: FOLIC ACID 1 MG TABLET PO SCH (08:37)
[2016-07-18] MEDS: PANTOPRAZOLE 40 MG TABLET. PO SCH (08:37)
[2016-07-18] MEDS: NICOTINE 21MG PATCH. TD SCH (08:37)
[2016-07-18] MEDS: ALPRAZolam 0.5 MG TABLET PO PRN (08:38)
[2016-07-18] MEDS: AZITHROMYCIN 250 MG TABLET. PO SCH (08:38)
[2016-07-18] MEDS: QUEtiapine 100 MG TABLET. PO SCH ×2 (08:38→20:51)
[2016-07-18] MEDS ORDERED: ACETAMINOPHEN 325 MG TABLET PO PRN (08:45)
[2016-07-18] MEDS: lamoTRIgine 100 MG TABLET. PO SCH ×2 (08:48→20:51)
--- NOTE | 2016-07-18 09:40 | PN ---
DATE: 07/17/2016 SUBJECTIVE: The patient apparently has an episode of altered mental status and what seemed to be tonic-clonic seizure for which we did a CT scan of the head without contrast, which apparently was unremarkable. We did consult Dr. Hartman and an EEG was done this morning. However, when I came this afternoon to see her, she was awake and we were asking her questions and she went into another typical tonic-clonic seizure that lasted for a minute and half and went into postictal state, she was given 2 mg of Ativan. She was somewhat agitated and combative. OBJECTIVE: GENERAL: On examining her, she was sleepy, pale, but no jaundice, cyanosis, or thyromegaly. No jugular venous distention. No limb edema. VITAL SIGNS: Her heart rate was 86, blood pressure 135/86, temperature was 98.4, respiratory rate 24 and oxygen saturation was 92% on 2 liters of oxygen. HEAD, EYES, EARS, NOSE, AND THROAT: Showed normocephalic, atraumatic. NECK: Supple. HEART: Showed normal first and second heart sounds with no gallop, rub, or murmur. CHEST: Clear to auscultation. No crepitation or rhonchi. ABDOMEN: Distended, soft, nontender. NEUROLOGIC: She was in postictal state. She does move her extremities spontaneously. Her intake over the last 24 hours was 880, output was 350. LABORATORY DATA: Showed white cell count of 12,300, hemoglobin 14.9, hematocrit 44, MCV 97 and platelet count 289,000 with manual differential showed 86% polymorphs, 9% lymphocytes and 4% monocytes. Her chemistry this morning showed serum sodium 143, potassium 3.5, chloride 106, bicarbonate 26, anion gap of 11, BUN 12, creatinine 0.9, estimated GFR was 63 mL per minute. Her glucose was 109. Calcium was 9.7. TSH was 1.66. The plan is to continue with her current medication including her Zithromax and IV ceftriaxone, continue with prednisone. She is normally on lamotrigine 200 mg twice a day and apparently she is known to have seizures before. I am not sure that we need to add Keppra or not given that she has already 2 episodes of tonic-clonic seizure this morning. ASSESSMENT: 1. Chronic obstructive pulmonary disease exacerbation. 2. Acute bronchitis. 3. Breakthrough seizures. 4. Glaucoma. DANIEL KAPLAN MD DR: ESTEPHANIA/james JOB#: [id number] / [id number]
--- NOTE | 2016-07-18 18:28 | PN ---
DATE: PROGRESS NOTE AND ELECTROENCEPHALOGRAM REPORT SUBJECTIVE: The patient denies any new medical or neurological complaints. She has not had any recurrent seizure since being on Keppra. The patient has been restless last night and she was given Ativan. Currently, she denies headaches, visual disturbances, nausea, vomiting, chest pain, shortness of breath or palpitations. OBJECTIVE: GENERAL: Well-developed, well-nourished white female, not in acute distress. VITAL SIGNS: Blood pressure is 138/78, respiratory rate 18, pulse is 89 and regular, temperature 100.1 and oxygen saturation is 96% on 2 liters by nasal cannula. HEENT: Normocephalic, atraumatic, otherwise unremarkable. NECK: Supple. Negative for carotid bruit, lymphadenopathy or thyromegaly. LUNGS: With diminished breath sounds. CARDIOVASCULAR: Regular rate and rhythm, normal S1, S2. There is no S3, S4 or murmur. ABDOMEN: Soft. Bowel sounds positive. EXTREMITIES: Negative for cyanosis, clubbing or pitting edema. NEUROLOGICAL EXAM: Mental Status: The patient is alert and oriented x 2. Speech is fluent. There is no language dysfunction. Memory, judgment, and abstract thinkings are fair. The patient denies hallucination or delusion. Cranial nerves are intact. No focal motor or sensory deficit. Deep tendon reflexes are symmetric and active without pathologic responses. Gait not tested at this time. LABORATORY DATA: CBC revealed white blood cells of 11,300, hemoglobin 12.9, hematocrit 37.8 and platelet count 238,000. Chemistry revealed sodium of 146, potassium 3.8, chloride 110, CO2 of 28, BUN 11, creatinine 1 and glucose 97. Alkaline phosphatase is very high at 1250. Electroencephalogram: This is a digital 18-channel EEG was performed using the standard international 10-20 electrode placement system. Photic stimulation and hyperventilation were used as an activation procedure. As the patient was not sleep deprived, the patient was not sedated. The EEG obtained with the patient in the awake state characterized by posterior dominant rhythm of 8-9 cycles per second with an amplitude of 25-35 microvolts. It was bilaterally symmetric and attenuated with eye opening. The background shows frequent generalized bursts of slow and spiked sharp wave complexes at 2-3 cycles per second throughout the recording. Photic stimulation produced no driving responses and hyperventilation indicated no changes in the background activities. IMPRESSION: 1. Seizure disorder. 2. Abnormal EEG consistent with generalized seizure disorder. 3. Exacerbation of chronic obstructive pulmonary disease and probably acute bronchitis. 4. Multiple psychiatric problems including schizophrenia, bipolar disorder and anxiety. RECOMMENDATIONS: Continue with current anticonvulsant and current management initiated by Dr. Castro. M Avis ALBERT MD DR: LIZA/james JOB#: [id number] / [id number]
[2016-07-18] MEDS: methylPREDNISolone SOD SUCC PF 40 MG/ML VIAL. IV SCH (18:29)
--- NOTE | 2016-07-18 19:43 | PN ---
DATE: 07/18/2016 SUBJECTIVE: The patient is resting, slightly propped up in bed, in no apparent respiratory distress. She was sleepy, but arousable. On questioning her, denied any complaint. The nursing staff stated that she has no further episodes of tonic-clonic seizures. She did spike her temperature this morning up to 100.1, but she is definitely more awake today and alert and she has eaten her breakfast and lunch. OBJECTIVE: GENERAL: When I examined her, she looked pale, somewhat cachectic, but no jaundice, cyanosis or thyromegaly. No jugular venous distention. No limb edema. VITAL SIGNS: Her heart rate was 89, blood pressure was 138/78, temperature was 100.1, respiratory rate was 18 and oxygen saturation was 96% on 2 liters of oxygen. HEAD, EYES, EARS, NOSE AND THROAT: Showed normocephalic, atraumatic. NECK: Supple. HEART: Showed normal first and second heart sounds with no gallop, rub or murmur. CHEST: Shows central trachea, equally reduced expansion, reduced air entry, vesicular sounds with bilateral scattered rhonchi. I could not appreciate any crepitation. ABDOMEN: Scaphoid, soft, nontender. NEUROLOGIC: She is more awake, alert, responding appropriately. Cranial nerves are intact. She moves extremities without difficulty. She is still unsteady on her feet. Her intake over the last 24 hours was 470, output 500. LABORATORY DATA: Her lab work this morning showed a white cell count of 11,300, hemoglobin 13, hematocrit 38, MCV 98 and platelet count 238,000. Her serum sodium was 146 mEq/L, potassium 3.8, chloride 110, bicarbonate 28, anion gap of 8, BUN 11, creatinine 1, estimated GFR was 56 mL per minute. Her glucose 97, calcium was 8.8. Total bilirubin, AST, ALT, alkaline phosphatase were normal. Her CK was high at 1250. Total protein was 6.8, albumin 3.2. ASSESSMENT: 1. Acute bronchitis. 2. Chronic obstructive pulmonary disease exacerbation. 3. Grand mal seizure with breakthrough seizures. 4. Glaucoma. PLAN: Obviously to continue with Keppra and lamotrigine, continue with IV antibiotic and steroids. I will cut down her steroids to 40 mg IV twice a day. DANIEL KAPLAN MD DR: Blanche JOB#: [id number] / [id number]
[2016-07-18] MEDS: PRAZOSIN 1 MG CAPSULE. PO SCH (20:50)
[2016-07-18] MEDS: LATANOPROST 0.005% OPHTH SOLUTION 2.5ML BOTTLE. OU SCH (20:51)
--- NOTE | 2016-07-18 21:47 | NUR ---
Pt cooperative and calm this evening, able to verbalize POC. Alert and oriented x3. Pt was not able to remember what occured within the past day but states she is feeling back to normal today. Denies complaints of pain or discomfort so far this shift. Pt resting comfortably at this time.
[2016-07-19 03:48] VITALS: BP 103/63
[2016-07-19] MEDS: IPRATRPIUM/ALBUTEROL 0.5/2.5MG 3 ML NEBU. NEB SCH ×2 (05:10→11:18)
[2016-07-19] MEDS: methylPREDNISolone SOD SUCC PF 40 MG/ML VIAL. IV SCH (05:26)
[2016-07-19 05:30] VITALS: BP 95/55
[2016-07-19 06:26] LABS: CALCIUM 8.7 mg/dL (8.5-10.1); GFR 55.8; POTASSIUM 3.3 mmol/L (3.5-5.1)
--- NOTE | 2016-07-19 07:34 | NUR ---
PT feeling much better and back to her baseline. PT is able to verbalize understanding of poc. Rachelle WRIGHT
[2016-07-19] MEDS: SERTRALINE 100 MG TABLET. PO SCH (07:48)
[2016-07-19] MEDS: ENOXAPARIN 40 MG/0.4 ML DISP.SYRIN. SQ SCH (07:48)
[2016-07-19] MEDS: NICOTINE 21MG PATCH. TD SCH (07:48)
[2016-07-19] MEDS: QUEtiapine 100 MG TABLET. PO SCH (07:48)
[2016-07-19] MEDS: PANTOPRAZOLE 40 MG TABLET. PO SCH (07:48)
[2016-07-19] MEDS: FOLIC ACID 1 MG TABLET PO SCH (07:48)
[2016-07-19] MEDS: AZITHROMYCIN 250 MG TABLET. PO SCH (07:48)
[2016-07-19] MEDS: lamoTRIgine 100 MG TABLET. PO SCH (07:49)
[2016-07-19] MEDS: ALPRAZolam 0.5 MG TABLET PO PRN (07:56)
[2016-07-19] MEDS ORDERED: POTASSIUM CHLORIDE 20 MEQ TABLET.ER. PO ONE (08:40)
[2016-07-19 13:04] VITALS: BP 98/64
[2016-07-19] MEDS ORDERED: LEVE500T56 PO (13:57)
[2016-07-19] MEDS ORDERED: CEFP200T PO (14:05)
[2016-07-19] MEDS ORDERED: AZIT250T PO (14:05)
[2016-07-19] MEDS ORDERED: PRED-220 PO (14:05)
--- NOTE | 2016-07-19 14:27 | NUR ---
Nursing Note Pt discharged from unit ambulatory via private vehicle at 1420. Discharge instructions given.
--- NOTE | 2016-07-19 19:32 | DS ---
DATE OF DISCHARGE: 07/19/2016 HOSPITAL COURSE: The patient is a 66-year-old female patient who was admitted originally with shortness of breath and chest pain. Her cardiac workup was negative and her 3 sets of cardiac enzymes that were less than 0.017. We did treat her for acute bronchitis and COPD exacerbation and started her on IV Solu-Medrol, Zithromax and Rocephin. Unfortunately, she developed breakthrough seizures and had two witnessed tonic-clonic grand mal seizures for which she was given Keppra 1 g IV on 2 consecutive days. Her EEG was abnormal consistent with generalized seizure disorder. She did actually very well, has had no further episodes of seizure for the last 48 hours and the patient has been up and about with no further episodes of shortness of breath, chest tightness or wheezing and a decision was made to discharge her home to continue with the Keppra 500 mg twice a day, continue with tapering course of steroids, Zithromax and Vantin to complete the course of treatment and to follow with Dr. Hartman as an outpatient in 2 weeks' time. PHYSICAL EXAMINATION: GENERAL: When I saw her this afternoon, she was sitting on the edge of the bed comfortably in no apparent distress. No pallor, jaundice, cyanosis or thyromegaly. No jugular venous distention. No limb edema. VITAL SIGNS: Her heart rate was 88, blood pressure was 98/64, temperature was 98.5, respiratory rate 20 and oxygen saturation was 96% on 2 liters of oxygen by nasal cannula. HEAD, EYES, EARS, NOSE AND THROAT: Showed normocephalic, atraumatic. NECK: Supple. HEART: Showed normal first and second heart sounds with no gallop, rub or murmur. CHEST: Clear to auscultation. No crepitation or rhonchi. ABDOMEN: Distended, soft, nontender. No guarding or rigidity. No organomegaly. All hernial orifices intact. Bowel sounds normal. NEUROLOGIC: She was awake, alert, responding appropriately. Her cranial nerves are intact. She moves extremities without difficulty. She ambulates without assistance or assistive devices. LABORATORY DATA: Her lab work this morning showed a serum sodium 147, potassium 3.3, chloride 110, bicarbonate 28, anion gap of 9, BUN 16, creatinine 1, estimated GFR was 55 mL per minute. Her glucose was 89, calcium was 8.7. Her CK is down from 1250 to 449. Total protein 6.8, albumin 3.2. Her white cell count was 11,300, hemoglobin 13, hematocrit 38, MCV 98 and platelet count of 238,000. DISCHARGE MEDICATIONS: She was discharged home to continue on following medications: Zithromax 250 mg once a day for 7 days, cefpodoxime proxetil 200 mg twice a day for 7 days, Keppra 200 mg twice a day, prednisone 10 mg in a tapering fashion. She should also continue on albuterol sulfate via nebulizer every 4 hours as needed, alprazolam 1 mg 4 times a day, docusate sodium 100 mg twice a day, Nexium 40 mg once a day, folic acid 1 mg once a day, lamotrigine 200 mg twice a day, latanoprost 1 drop to both eyes at bedtime, Nicoderm patch 21 mg topically daily, prazosin 2 mg p.o. at bedtime, Seroquel XR 600 mg at bedtime for schizophrenia and Seroquel 200 mg daily for schizophrenia, sertraline 200 mg once a day and Ambien 5 mg at bedtime. FINAL DISCHARGE DIAGNOSES: 1. Acute bronchitis. 2. Chronic obstructive pulmonary disease exacerbation. 3. Grand mal seizure with breakthrough seizures. 4. Glaucoma. 5. She is also known to have schizophrenia. DISCHARGE INSTRUCTIONS: The patient should follow with Dr. Hartman's office in 2 weeks' time. DANIEL KAPLAN MD DR: ESTEPHANIA/james JOB#: [id number] / [id number]
--- NOTE | 2016-07-20 01:12 | PN ---
DATE: 07/19/2016 SUBJECTIVE: The patient denies any new medical or neurological complaints. She feels very good this morning. She denies chest pain, shortness of breath, or palpitation. She has not had any recurrent seizure. OBJECTIVE: GENERAL: Well-developed, well-nourished white female, not in acute distress. VITAL SIGNS: Blood pressure ____, respiratory rate is 17, pulse is 70, temperature is 98.6, oxygen saturation is 93% on 2 liters per nasal cannula. HEENT: Normocephalic, atraumatic, otherwise unremarkable. NECK: Supple. Negative for carotid bruit, lymphadenopathy, or thyromegaly. LUNGS: Diminished breath sounds without significant wheezing or rales. CARDIOVASCULAR: Regular rhythm, normal S1, S2. ABDOMEN: Soft. Bowel sounds positive. No palpable mass, organomegaly, or tenderness. EXTREMITIES: Negative for cyanosis, clubbing, or pitting edema. NEUROLOGICAL: Mental Status: The patient is alert and oriented x 3. Speech is fluent. There is no language dysfunction. Memory, judgment, and abstract thinking are normal. The patient denies hallucination or delusion. Cranial nerves are intact. No focal muscle bulk was seen. The tone was normal. The strength was 5/5 throughout. Sensory examination revealed normal pinprick, light touch, vibratory, and position senses. Deep tendon reflexes are symmetric and active without pathology responses. Gait and coordination are normal. IMPRESSION: 1. Seizure disorder of unknown etiology - no recurrence since being on Keppra. 2. Chronic obstructive pulmonary disease exacerbation and acute bronchitis - improved. 3. Multiple psychiatric problems include schizophrenia, bipolar disorders, and anxiety. RECOMMENDATION: Continue with current management initiated by Dr. Castro and current medications for seizure. M Avis ALBERT MD DR: LIZA/james JOB#: [id number] / [id number]
== END 2016-07-19 14:33 | disposition home or self-care (01) | DRG 202 ==
LOC: ER 12:33 → 1 SOUTH 15:04 → OBSVTOIN 07-16 08:56 → ICU 07-17 14:58
PROVIDERS: ADMIT Internal Medicine; ATTEND Internal Medicine
DX: J20.9 Acute bronchitis, unspecified (principal); J44.0 Chronic obstructive pulmonary disease with (acute) lower respiratory infection; J44.1 Chronic obstructive pulmonary disease with (acute) exacerbation; G40.409 Other generalized epilepsy and epileptic syndromes, not intractable, without status epilepticus; H40.9 Unspecified glaucoma; F41.9 Anxiety disorder, unspecified; F31.9 Bipolar disorder, unspecified; F20.9 Schizophrenia, unspecified; F17.200 Nicotine dependence, unspecified, uncomplicated; K21.9 Gastro-esophageal reflux disease without esophagitis; Z98.41 Cataract extraction status, right eye; Z98.42 Cataract extraction status, left eye; Z90.49 Acquired absence of other specified parts of digestive tract
CPT/HCPCS: 36415; 36600; 70450; 71010; 71275; 80048; 80053; 82550; 82553; 82803; 82947; 83605; 83880; 84443; 84484; 85027; 85379; 87040; 87641; 93005; 94640; 95816; 99406; G0378; G0379; J0456; J0696; J1650; J1953; J2060; J2405; J2920; J2930; J7050; J7620; Q9967; 99285-25

== ENCOUNTER 2016-10-04 10:03 | Inpatient (IN) | payer MEDICARE, OTHER ==
[~2016-10-04] VITALS: Ht 152.4 cm; Wt 75.7 kg
[~2016-10-04 10:03] MED LIST changes: +AMOX1TAB11 PO; +AZIT250T PO; +CEFP200T PO; +ESOM40CA PO; +GUAI-40 PO; +LATA2.5D2 EACHEYE; +LEVE500T56 PO; +NICO1PAT21 TP; +PRED-220 PO; +PRED20TA PO
[2016-10-04] MEDS ORDERED: MORPHINE SULFATE 2 MG/ML DISP.SYRIN. IV/SQ PRN (10:15)
[2016-10-04] MEDS ORDERED: NITROGLYCERIN SUBLINGUAL 0.4 MG BOTTLE OF 25. SL PRN (10:15)
--- NOTE | 2016-10-04 10:21 | PHYS DOC ---
General Chief Complaint: chest pain Stated Complaint: CHEST PAIN Time Seen by MD: 10:09 Source: patient, family, old records Exam Limitations: no limitations Problems: History of Present Illness Initial Comments Patient is a 66-year-old female brought to the ED by her spouse with a complaint of chest pain. Patient has history of bipolar disorder, schizophrenia, and COPD, she follows on Post for these issues. She states that last night approximately 9 PM she had sudden onset severe left-sided chest pain. She denies trouble breathing at rest , diaphoresis, dizziness, nausea vomiting, or arm or neck symptoms. Chest pain is made much worse with postural movements and deep breaths it is relieved with rest. Patient does have greater than [id number] tobacco history with known COPD she has had dyspnea on exertion with a nonproductive cough. Patient spouse relays that the patient has had a series of falls recently for which she has seen her doctor. Her disequilibrium has been attributed to patient 's chronic psych medications which the patient needs. The patient denies any head trauma or specific injuries related to these falls. She denies any new medications or exertional activities. ED vital signs: 98.4, 96, 20, 168/98, 94% room air Timing/Duration: other (> 12 hours) Severity: moderate Modifying Factors: worse with movement, improves with rest Associated Symptoms: chest pain, shortness of breath Allergies: Coded Allergies: No Known Drug Allergies (Unverified , 11/19/13) Past Medical History Medical History: other (bipolar disorder, schizophrenia, COPD, seizure) Surgical History: cholecystectomy, other (hiatal hernia repair, bilateral cataracts, right shoulder, EGD, colonoscopy) Family History Significant Family History: no pertinent family hx Social History Smoker: greater than 1 pack/day Alcohol: occasionally Drugs: none Review of Systems Constitutional: denies chills, denies diaphoresis, denies fever, denies malaise Respiratory: cough, denies orthopnea, shortness of breath, denies stridor, wheezing Cardiovascular: chest pain, denies edema, denies palpitations, denies syncope Gastrointestinal: denies abdominal pain, denies diarrhea, denies nausea, denies vomiting Genitourinary: denies dysuria, denies frequency, denies hematuria Musculoskeletal: denies back pain, denies joint swelling, denies neck pain Psychiatric/Neurological: denies headache, denies numbness, denies paresthesia Hematologic/Lymphatic: denies blood clots, denies easy bleeding, denies easy bruising Physical Exam General Appearance: WD/WN, no apparent distress Ear, Nose, Throat: hearing grossly normal, normal ENT inspection Neck: non-tender, supple Respiratory: other (Rales and wheezes bilaterally with good air movement, left lateral rib cage is tender to palpation reproducing the chief complaint) Cardiovascular: normal peripheral pulses, regular rate, rhythm Gastrointestinal: non tender, soft Extremities: non-tender, normal inspection 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 Interpreted by Dr. Sepulveda. PATIENT: VIDHI TRAN ACCOUNT: [id number] : 1950 LOCATION: ER AGE: 66 SEX: F EXAM STATUS: REG ER ORD. PHYSICIAN: CARIDAD SEPULVEDA DO REASON: cp PROCEDURE: PORTABLE CHEST 1V AP chest, 10/04/2016: History: Chest pain Comparison is made to a study from 07/15/2016. The heart size is normal. The aorta is mildly tortuous. There are emphysematous changes in the upper lobes with scattered parenchymal scars. A vague opacity projected over the right lower chest laterally is probably due to an overlying breast shadow. No definite pulmonary infiltrate is seen. There is no evidence of pneumothorax or pleural fluid. The bony structures are demineralized. A surgical plate and screws is again noted in the proximal right humerus. IMPRESSION: 1. Emphysema with parenchymal scarring. 2. No acute cardiopulmonary abnormality is detected. DICTATED AND SIGNED BY: JAVIER MCKEON MD DATE: 10/04/16 1035 CC: NON,STAFF; CARIDAD SEPULVEDA DO ~ Pertinent labs: BUN 14, creatinine 1.3, d-dimer 1.19, AST 58, creatine kinase 2249 1131: I requested Dr Cole gonzales for admission. 1143: Dr Galvan accepts inpatient telemetry admission for serial CE/CK, V/Q, IV hydration, nebs. Pt resting states her pain has subsided greatly no new complaints. Departure Disposition: ADMITTED INPATIENT Diagnosis: rhabdomyolysis, CP, elev d-dimer Condition: STABLE Additional Instructions: inpatient telemetry admission Dr Galvan is accepting. CARIDAD SEPULVEDA DO Oct 04, 2016 10:21
[2016-10-04 10:36] LABS: BASO % 1 % (0-3); EOS # 0.2 x10^3/uL (0.0-0.7); EOS % 6 % (0-3); HEMATOCRIT 40.4 % (36.0-47.0); HEMOGLOBIN 13.7 g/dL (12.0-15.5); LYMPH # 0.9 x10^3/uL (1.0-4.8); LYMPH % 20 % (24-48); MEAN CORPUSCULAR HEMOGLOBIN 34 pg (25-35); MEAN CORPUSCULAR HGB CONC 34 g/dL (31-37); MEAN CORPUSCULAR VOLUME 101 fL (79-100); MONO # 0.5 x10^3/uL (0.0-1.1); MONO % 10 % (0-9); NEUT # 2.8 x10^3uL (1.8-7.7); NEUT % 64 % (31-73); PLATELET COUNT 229 x10^3/uL (140-400); RED BLOOD COUNT 4.02 x10^6/uL (3.50-5.40); RED CELL DISTRIBUTION WIDTH 14.6 % (11.5-14.5); WHITE BLOOD COUNT 4.5 x10^3/uL (4.0-11.0)
--- NOTE | 2016-10-04 10:41 | RAD ---
AP chest, 10/04/2016: History: Chest pain Comparison is made to a study from 07/15/2016. The heart size is normal. The aorta is mildly tortuous. There are emphysematous changes in the upper lobes with scattered parenchymal scars. A vague opacity projected over the right lower chest laterally is probably due to an overlying breast shadow. No definite pulmonary infiltrate is seen. There is no evidence of pneumothorax or pleural fluid. The bony structures are demineralized. A surgical plate and screws is again noted in the proximal right humerus. IMPRESSION: 1. Emphysema with parenchymal scarring. 2. No acute cardiopulmonary abnormality is detected.
[2016-10-04] MEDS ORDERED: methylPREDNISolone SOD SUCC PF 125 MG/2 ML VIAL. IV ONE (10:45)
[2016-10-04] MEDS ORDERED: ASPIRIN 81 MG TAB.CHEW PO ONE (10:45)
[2016-10-04] MEDS ORDERED: IPRATRPIUM/ALBUTEROL 0.5/2.5MG 3 ML NEBU. NEB ONE (10:45)
[2016-10-04 10:56] LABS: ALBUMIN 3.9 g/dL (3.4-5.0); CALCIUM 8.9 mg/dL (8.5-10.1); CREATININE 1.3 mg/dL (0.6-1.0); GFR 41.2; MAGNESIUM 1.9 mg/dL (1.8-2.4); POTASSIUM 3.9 mmol/L (3.5-5.1); TOTAL BILIRUBIN 0.5 mg/dL (0.2-1.0); TOTAL PROTEIN 7.9 g/dL (6.4-8.2)
--- NOTE | 2016-10-04 10:56 | EKG ---
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
[2016-10-04] MEDS ORDERED: IV NORMAL SALINE 1,000ML 1,000 ML IV SCH (11:30)
[2016-10-04] MEDS ORDERED: IV NORMAL SALINE 1,000ML 1,000 ML IV ONE (12:45)
[2016-10-04] MEDS ORDERED: ALBUTEROL SULFATE 2.5 MG/3 ML NEBU. NEB PRN ×2 (12:45→18:30)
[2016-10-04 12:57] VITALS: BP 143/85
[2016-10-04] MEDS: IPRATRPIUM/ALBUTEROL 0.5/2.5MG 3 ML NEBU. NEB SCH ×3 (13:00→20:18)
[2016-10-04 15:37] VITALS: BP 125/80
[2016-10-04] MEDS ORDERED: ENOXAPARIN ** NOTE DOSE ** SYRINGE SQ SCH (16:30)
--- NOTE | 2016-10-04 16:58 | RAD ---
Ventilation/perfusion lung scan, 10/04/2016: History: Chest pain, elevated d-dimer Comparison is made to a study from 06/16/2015. The ventilation study was performed utilizing 16.3 mCi of xenon-133. There are ventilation defects in both upper lobes. There is patchy retention of activity in both lungs on the washout phase. The findings are compatible with patient's known bullous emphysema. Perfusion imaging was performed utilizing 5.5 mCi of technetium 99m MAA. There are moderate bilateral perfusion defects involving primarily the upper lobes. Similar findings were present on 06/16/2015. The findings are probably due to emphysema. No new perfusion defects are evident. IMPRESSION: 1. Bilateral ventilation and perfusion abnormalities compatible with the patient's known bullous emphysema. 2. The perfusion defects are unchanged since 06/16/2015, with no evidence of acute pulmonary emboli.
[2016-10-04] MEDS: IV NORMAL SALINE 1,000ML 1,000 ML IV SCH ×2 (17:30→20:23)
[2016-10-04 17:35] LABS: BACTERIA,URINE FEW /HPF (0-FEW); BILIRUBIN,URINE NEG (NEG); CLARITY,URINE CLEAR; COLOR,URINE YELLOW; GLUCOSE,URINE NEG (NEG); NITRITE,URINE NEG (NEG); RBC,URINE 0 /HPF (0-2); SQUAMOUS EPITHELIAL CELL,UR OCC /LPF; UROBILINOGEN,URINE 0.2 mg/dL (0.2 mg/dL); WBC,URINE OCC /HPF (0-4)
[2016-10-04 17:41] LABS: AMPHETAMINE/METHAMPHETAMINE NEG (NEG); BARBITURATES NEG (NEG); BENZODIAZEPINES POS (NEG); CANNABINOIDS NEG (NEG); COCAINE NEG (NEG); METHADONE NEG (NEG); OPIATES POS (NEG); PHENCYCLIDINE NEG (NEG)
[2016-10-04] MEDS ORDERED: COLE625T12 PO (18:09)
[2016-10-04] MEDS ORDERED: FEXO180T81 PO (18:09)
[2016-10-04] MEDS ORDERED: FLUT1DIS3 IH (18:09)
[2016-10-04] MEDS ORDERED: MELA1TAB33 PO (18:09)
[2016-10-04] MEDS ORDERED: ACET325T9 PO (18:09)
[2016-10-04] MEDS ORDERED: TIOT18CA IH (18:09)
[2016-10-04] MEDS ORDERED: CYAN10005 PO (18:09)
[2016-10-04] MEDS ORDERED: TRAV5DRO EACHEYE (18:09)
[2016-10-04] MEDS ORDERED: MECL12.52 PO (18:09)
[2016-10-04] MEDS ORDERED: ACETAMINOPHEN 325 MG TABLET PO PRN (18:30)
[2016-10-04] MEDS ORDERED: MECLIZINE 12.5 MG TABLET. PO PRN (18:30)
[2016-10-04] MEDS ORDERED: MELATONIN 3 MG TABLET PO PRN (18:45)
[2016-10-04 20:20] VITALS: BP 147/98
[2016-10-04] MEDS: LATANOPROST 0.005% OPHTH SOLUTION 2.5ML BOTTLE. OU SCH (21:00)
[2016-10-04] MEDS: LIDOCAINE (700MG/PATCH) PATCH. TD SCH (21:22)
[2016-10-04] MEDS: QUEtiapine 100 MG TABLET. PO SCH (21:23)
[2016-10-04] MEDS: lamoTRIgine 100 MG TABLET. PO SCH (21:23)
[2016-10-04] MEDS: MORPHINE SULFATE 2 MG/ML DISP.SYRIN. IV PRN (21:24)
[2016-10-04] MEDS: ZOLPIDEM 5 MG TABLET. PO PRN (22:00)
[2016-10-04 23:24] VITALS: BP 153/88
[2016-10-05 05:14] VITALS: BP 138/90
[2016-10-05] MEDS: IPRATRPIUM/ALBUTEROL 0.5/2.5MG 3 ML NEBU. NEB SCH ×3 (05:38→20:20)
[2016-10-05] MEDS: IV NORMAL SALINE 1,000ML 1,000 ML IV SCH ×2 (05:56→17:26)
[2016-10-05] MEDS: methylPREDNISolone SOD SUCC PF 40 MG/ML VIAL. IV SCH ×2 (05:57→08:09)
[2016-10-05] MEDS: MORPHINE SULFATE 2 MG/ML DISP.SYRIN. IV PRN (06:01)
[2016-10-05 06:12] LABS: BASO % 1 % (0-3); EOS # 0.1 x10^3/uL (0.0-0.7); EOS % 1 % (0-3); HEMATOCRIT 36.5 % (36.0-47.0); HEMOGLOBIN 12.2 g/dL (12.0-15.5); LYMPH # 1.4 x10^3/uL (1.0-4.8); LYMPH % 20 % (24-48); MEAN CORPUSCULAR HEMOGLOBIN 34 pg (25-35); MEAN CORPUSCULAR HGB CONC 33 g/dL (31-37); MEAN CORPUSCULAR VOLUME 101 fL (79-100); MONO # 0.6 x10^3/uL (0.0-1.1); MONO % 8 % (0-9); NEUT # 4.9 x10^3uL (1.8-7.7); NEUT % 71 % (31-73); PLATELET COUNT 212 x10^3/uL (140-400); RED BLOOD COUNT 3.61 x10^6/uL (3.50-5.40); RED CELL DISTRIBUTION WIDTH 14.9 % (11.5-14.5)
[2016-10-05 06:22] LABS: ALBUMIN/GLOBULIN RATIO 0.9 (1.0-1.7); CALCIUM 8.2 mg/dL (8.5-10.1); CREATININE 1.1 mg/dL (0.6-1.0); POTASSIUM 3.6 mmol/L (3.5-5.1); TOTAL BILIRUBIN 0.3 mg/dL (0.2-1.0); TOTAL PROTEIN 6.4 g/dL (6.4-8.2); WHITE BLOOD COUNT 6.9 x10^3/uL (4.0-11.0)
--- NOTE | 2016-10-05 06:23 | ACF ---
Admit Criteria Forms Admit Criteria Forms Admit Criteria Forms MUSCULOSKELETAL DISEASE GRG Clinical Indications for Admission to Inpatient Care (Place 'X' for any and all applicable criteria): Hospital admission is needed for appropriate care of the patient because of 1 or more of the following: [ ]I. Fracture, dislocation, or other musculoskeletal injury requiring inpatient care(medical) as indicated by 1 or more of the following(4)(5)(6)(7) [ ]a) Vertebral fracture requiring observation for instability or neurologic compromise (8) [ ]b) Compartment syndrome (proven or cannot be ruled out during observation level of care) (9) [ ]c) Limb-threatening injury [ ]d) Major injury requiring inpatient stabilization such as traction initiation or external fixation before internal fixation or closure of complex or open fracture [ ]e) Major injury requiring inpatient treatment after emergency or observation level care (as appropriate) [ ]f) Severe pain requiring acute inpatient management [ ]g) Injury with suspicion of abuse or neglect (eg., child, dependent elderly) [ ]II. Newly diagnosed or suspected bone, joint, or orthopedic device infection (e.g., osteomyelitis, septic arthritis) needing 1 or more of the following(1)(2)(3) [ ]a) IV antibiotics that cannot be initiated in other than inpatient setting (e.g., patient too unstable or home infusion not available) [ ]b) Device removal or replacement [ ]c) Bone or soft tissue debridement [ ]d) Joint drainage (drain placement or repetitive aspirations) [ ]III. Severe rheumatologic disease (e.g., systemic lupus erythematosus, rheumatoid arthritis) with complications or comorbidities (Also use Optimal Recovery Care Criteria or General Recovery Criteria as appropriate on the basis of predominant condition), including 1 or more of the following( 10)(11)(12)(13) [ ]a) Severe infection (e.g., TEXTILE CONVERSION MANAGER infection, sepsis) (14) [ ]b) Respiratory complications, including 1 or more of the following : [ ]i) Pleural effusion with respiratory compromise [ ]ii) Pulmonary hypertension with congestive failure [ ]iii) Respiratory failure [ ]iv) Pulmonary hemorrhage (15) [ ]c) Hematologic disease, including 1 or more of the following: [ ]i) Coagulopathy with bleeding [ ]ii) Thrombosis with hypercoagulable state [ ]iii) Thrombotic thrombocytopenic purpura [ ]d) Cerebritis with seizures, psychosis, or other severe abnormalities [ ]e) Vertebral destruction with monitoring needed for cervical myelopathy& possible respiratory compromise [ ]f) Exacerbation that requires inpatient treatment (e.g., intravenous immunosuppression) (16) [ ]g) Acute renal failure [ ]h) Cerebritis with seizures, psychosis, Altered mental status, or other neurologic abnormalities [ ]i) Pericardial effusion with tamponade [ ]j) Vertebral destruction, with monitoring needed for cervical myelopathy and possible respiratory compromise [ ]IV. Severe vasculitis with complications or comorbidities (Also use Optimal Recovery Care Criteria General Recovery Criteria as appropriate on the basis of predominant condition), including 1 or more of the following(11)(12)(17)(18)(19)(20) [ ]a) Exacerbation that requires inpatient treatment (e.g., intravenous immunosuppression) (19)(21) [ ]b) Pulmonary hemorrhage (15) [ ]c) TEXTILE CONVERSION MANAGER vasculitis with seizures, psychosis, Altered mental status that is severe or persistent, or other severe abnormalities (22) [ ]d) Cerebral infarction [ ]e) Gastrointestinal ischemia [ ]f) Gangrene or threatened amputation [ ]g) Renal failure (16) [ ]h) Other significant complications of vasculitis ( eg., tissue or organ ischemia, organ dysfunction ) [ ]V. Severe myopathy as indicated by 1 or more of the following (28)(29) [ ]a) New onset of airway compromise or inability to swallow [ ]b) Respiratory deterioration with observation needed for impending respiratory failure [ ]c) Exacerbation that requires inpatient treatment (e.g., intravenous immunosuppression) [ ]. Severe crystal gout (arthropathy) indicated by 1 or more of the following (23)(24) [ ]a) Severe pain requiring acute inpatient management [ ]b) Exacerbation that requires inpatient treatment (e.g., intravenous treatment) [X]VII.Rhabdomyolysis and 1 or more of the following (25)(26)(27) [ ]a) Acute renal failure [X]b) Need for intravenous hydration after emergency or observation level care (as appropriate) [ ]c) Inability to maintain oral hydration [ ]d) Change in mental status [ ]e) Electrolyte abnormality that remains after emergency or observation level care (as appropriate) [ ]VIII Post amputation complication, as indicated by ANY ONE of the following [ ]a) Infection [ ]b) Dehiscence [ ]c) Myodesis failure [ ]IX. Severe pain requiring acute inpatient management due to musculoskeletal condition [ ]X. Musculoskeletal Disease and ALL of the following: [ ]a) Symptom or finding for which emergency and observation care have failed or are not considered appropriate (Use General Criteria: Observation Care as appropriate) [ ]b) Presence of ANY ONE of the following [ ]i) A General Admission Criteria [ ]ii) A Pediatric General Admission Criteria The original [facility] content created by [facility] has been revised. The portions of the content which have been revised are identified through the use of italic text or in bold, and [facility] has neither reviewed nor approved the modified material. All other unmodified content is copyright [facility]. Please see references footnoted in the original [facility] edition 2016 WES SANT[place] Oct 05, 2016 06:23
[2016-10-05] MEDS: COLESEVELAM HCL 625 MG TABLET PO SCH ×3 (08:08→17:26)
[2016-10-05] MEDS: SERTRALINE 100 MG TABLET. PO SCH (08:09)
[2016-10-05] MEDS: QUEtiapine 100 MG TABLET. PO SCH ×2 (08:09→20:21)
[2016-10-05] MEDS: CETIRIZINE HCL 10 MG TABLET PO SCH (08:10)
[2016-10-05] MEDS: CYANOCOBALAMIN (VITAMIN B-12) 1,000 MCG TABLET. PO SCH (08:10)
[2016-10-05] MEDS: lamoTRIgine 100 MG TABLET. PO SCH ×2 (08:10→20:21)
[2016-10-05] MEDS: LIDOCAINE (700MG/PATCH) PATCH. TD SCH (08:10)
[2016-10-05] MEDS: ALPRAZolam 0.5 MG TABLET PO PRN (08:20)
[2016-10-05] MEDS: ENOXAPARIN 40 MG/0.4 ML DISP.SYRIN. SQ SCH (09:00)
[2016-10-05] MEDS: PANTOPRAZOLE 40 MG TABLET. PO SCH (09:00)
[2016-10-05] MEDS: HYDROcodone/APAP 7.5/325MG 1 TAB TABLET PO PRN ×2 (10:03→18:37)
[2016-10-05 11:09] VITALS: BP 156/89
[2016-10-05] MEDS: DOXYCYCLINE HYCLATE 100 MG TABLET PO SCH ×2 (12:51→20:21)
--- NOTE | 2016-10-05 12:52 | HP ---
ADMIT DATE: 10/04/2016 REASON FOR ADMISSION: Chest pain. HISTORY OF PRESENT ILLNESS: This is a 66-year-old female who I saw yesterday evening briefly and then this morning as well. She presented to the Emergency Room complaining of chest pain, shortness of breath and some wheezing. She is not on home oxygen. She related that she had sudden onset of left-sided chest pain. She has also fallen several times, complaining of left shoulder pain as well. She has a very long smoking history, but quit about a month ago because she wanted to be around grandchildren, did not want her grandchildren to see her smoking. Spouse also recalls to the Emergency Room doctor several falls. PAST MEDICAL HISTORY: Bipolar disorder, right pulmonary embolism in 2015, tobacco use disorder, has now quit, chronic pain, bipolar disorder, posttraumatic stress disorder, schizoaffective disorder, COPD, chronic kidney disease stage 3, previous polypharmacy. FAMILY HISTORY: Negative. PAST SURGICAL HISTORY: Cholecystectomy, hiatal hernia repair, cataract surgery, right shoulder repair. HABITS: The patient lives at home with her . She is disabled. She had a 54-[id number]-ypde smoking history, but quit a month ago. No alcohol. REVIEW OF SYSTEMS: As per HPI. Denies fever, sore throat and positive as per HPI. PHYSICAL EXAMINATION: VITAL SIGNS: Temperature is 98.4, pulse 71, blood pressure 138/90, pulse ox is 92% on 3 liters, has been as low as 91%. HEENT: Her hearing is normal. Nose is patent. Her throat was clear. A little bit of postnasal drip. LUNGS: With diffuse inspiratory and expiratory wheezes. CARDIOVASCULAR: Regular rhythm and rate. ABDOMEN: Soft, nontender. EXTREMITIES: Without edema. Left shoulder has some bruising, but full range of motion. X-rays are pending. MENTAL STATE: She is alert, oriented, somewhat of an odd affect. Able to follow directions. LABORATORY DATA: Elevated D-dimer of 1.19. Chemistry: She had elevated CK of 2249, now decreased to 1106. Creatinine 1.3, decreased to 1.1. Her initial albumin was 3.9, decrease is delusional. Her troponin is negative. IMAGING: V/Q scan negative for PE. Chest x-ray negative for pneumonia. Positive emphysema. ASSESSMENT: 1. Acute respiratory failure with exacerbation of chronic obstructive pulmonary disease. 2. Mild rhabdomyolysis. 3. Repeated falls. 4. Bipolar disorder. 5. Acute kidney injury secondary rhabdo, now resolving. 6. Elevated D-dimer, pulmonary embolism negative. 7. History of PE. 8. Posttraumatic stress disorder. 9. Tobacco use disorder, has now quit. 10. Schizoaffective disorder. 11. Chronic kidney disease, stage 3. 12. DVT prophylaxis. PLAN: The patient received IV fluids for the rhabdo, IV antibiotics and as she has not improved significantly overnight, we will add in an antibiotic as well and see how she is doing tomorrow. Hopefully, we will be able to discharge her tomorrow and also she is getting DVT prophylaxis. MANDEEP GARCIA DO DR: PAULETTE/james JOB#: [id number] / [id number]
--- NOTE | 2016-10-05 13:02 | RAD ---
Three-view left shoulder study History: Patient fell 3 days ago. Persistent left shoulder pain. Difficulty moving arm. Findings: No acute fracture or dislocation or osteolytic process is seen. No AC joint separation is evident. 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 IMPRESSION: No acute fracture.
[2016-10-05] MEDS: ACETAMINOPHEN 650 MG/20.3 ML SOLUTION. PO SCH ×2 (14:54→22:01)
[2016-10-05] MEDS: methylPREDNISolone SOD SUCC PF 125 MG/2 ML VIAL. IV SCH ×2 (14:54→22:01)
[2016-10-05 15:07] VITALS: BP 153/83
[2016-10-05] MEDS: LATANOPROST 0.005% OPHTH SOLUTION 2.5ML BOTTLE. OU SCH (20:22)
[2016-10-05] MEDS: ZOLPIDEM 5 MG TABLET. PO PRN (20:24)
[2016-10-05 20:27] VITALS: BP 163/95
[2016-10-05 23:12] VITALS: BP 136/84
[2016-10-06] MEDS: IV NORMAL SALINE 1,000ML 1,000 ML IV SCH (02:23)
[2016-10-06] MEDS: ALPRAZolam 0.5 MG TABLET PO PRN ×2 (02:52→12:13)
[2016-10-06 05:37] VITALS: BP 161/79
[2016-10-06] MEDS: IPRATRPIUM/ALBUTEROL 0.5/2.5MG 3 ML NEBU. NEB SCH ×2 (05:38→12:05)
[2016-10-06] MEDS: ACETAMINOPHEN 650 MG/20.3 ML SOLUTION. PO SCH (05:42)
[2016-10-06] MEDS: methylPREDNISolone SOD SUCC PF 125 MG/2 ML VIAL. IV SCH (05:43)
[2016-10-06 07:29] LABS: BASO % 0 % (0-3); EOS % 0 % (0-3); HEMATOCRIT 37.3 % (36.0-47.0); HEMOGLOBIN 12.3 g/dL (12.0-15.5); LYMPH # 0.5 x10^3/uL (1.0-4.8); LYMPH % 6 % (24-48); MEAN CORPUSCULAR HEMOGLOBIN 34 pg (25-35); MEAN CORPUSCULAR HGB CONC 33 g/dL (31-37); MEAN CORPUSCULAR VOLUME 104 fL (79-100); MONO # 0.3 x10^3/uL (0.0-1.1); MONO % 3 % (0-9); NEUT # 7.4 x10^3uL (1.8-7.7); NEUT % 90 % (31-73); PLATELET COUNT 205 x10^3/uL (140-400); RED BLOOD COUNT 3.59 x10^6/uL (3.50-5.40); RED CELL DISTRIBUTION WIDTH 15.7 % (11.5-14.5); WHITE BLOOD COUNT 8.2 x10^3/uL (4.0-11.0)
[2016-10-06 07:48] LABS: ALBUMIN 3.2 g/dL (3.4-5.0); CALCIUM 8.7 mg/dL (8.5-10.1); CREATININE 1.1 mg/dL (0.6-1.0); POTASSIUM 4.4 mmol/L (3.5-5.1); TOTAL BILIRUBIN 0.2 mg/dL (0.2-1.0); TOTAL PROTEIN 6.4 g/dL (6.4-8.2)
[2016-10-06] MEDS: CYANOCOBALAMIN (VITAMIN B-12) 1,000 MCG TABLET. PO SCH (08:07)
[2016-10-06] MEDS: COLESEVELAM HCL 625 MG TABLET PO SCH ×2 (08:07→12:11)
[2016-10-06] MEDS: CETIRIZINE HCL 10 MG TABLET PO SCH (08:07)
[2016-10-06] MEDS: DOXYCYCLINE HYCLATE 100 MG TABLET PO SCH (08:07)
[2016-10-06] MEDS: SERTRALINE 100 MG TABLET. PO SCH (08:08)
[2016-10-06] MEDS: lamoTRIgine 100 MG TABLET. PO SCH (08:08)
[2016-10-06] MEDS: PANTOPRAZOLE 40 MG TABLET. PO SCH (08:08)
[2016-10-06] MEDS: QUEtiapine 100 MG TABLET. PO SCH (08:08)
[2016-10-06] MEDS: ENOXAPARIN 40 MG/0.4 ML DISP.SYRIN. SQ SCH (08:09)
[2016-10-06] MEDS: LIDOCAINE (700MG/PATCH) PATCH. TD SCH (08:09)
[2016-10-06] MEDS: HYDROcodone/APAP 7.5/325MG 1 TAB TABLET PO PRN (08:15)
[2016-10-06 08:21] LABS: % BANDS 4 % (0-9); % LYMPHS 6 % (24-48); % MONOS 1 % (0-10); % SEGS 89 % (35-66)
[2016-10-06 08:22] LABS: PLT ESTIMATE ADEQUATE (ADEQUATE); POLYCHROMASIA SLIGHT
[2016-10-06 08:23] LABS: ANISOCYTOSIS SLIGHT
[2016-10-06 11:23] VITALS: BP 157/85
[2016-10-06] MEDS ORDERED: DOXY100T PO (12:24)
[2016-10-06] MEDS ORDERED: PRED-220 PO (12:24)
--- NOTE | 2016-10-06 12:36 | PDOC3 ---
Discharge Summary Visit Information Date of Admission: Oct 04, 2016 Date of Discharge: Oct 06, 2016 Final Diagnosis Acute respiratory failure with exacerbation of chronic obstructive pulmonary disease. 2. Mild rhabdomyolysis. 3. Repeated falls. 4. Bipolar disorder. 5. Acute kidney injury secondary rhabdo, now resolving. 6. Elevated D-dimer, pulmonary embolism negative. 7. History of PE. 8. Posttraumatic stress disorder. 9. Tobacco use disorder, has now quit. 10. Schizoaffective disorder. 11. Chronic kidney disease, stage 3. 12. DVT prophylaxis. 13. Chest pain- non cardiac-costochrondritis Problems: Brief Hospital Course Allergies Allergies Coded Allergies Type Severity Reaction Last Updated Verified No Known Drug Allergies 11/19/13 No Vital Signs Vital Signs Date Time Temp Pulse Resp B/P (MAP) Pulse Ox O2 Delivery O2 Flow Rate FiO2 10/06/16 12:01 92 Nasal Cannula 2.0 10/06/16 11:23 98.2 87 20 157/85 (109) Lab Results Laboratory Tests Test 10/04/16 16:55 10/04/16 17:05 10/04/16 20:46 10/04/16 22:55 Troponin I Quantitative < 0.017 ng/mL (0-0.055) < 0.017 ng/mL (0-0.055) Urine Collection Type Unknown Urine Color Yellow Urine Clarity Clear Urine pH 6.0 Urine Specific [place] 1.010 Urine Protein Neg (NEG-TRACE) Urine Glucose (UA) Neg mg/dL (NEG) Urine Ketones (Stick) Neg mg/dL (NEG) Urine Blood Neg (NEG) Urine Nitrite Neg (NEG) Urine Bilirubin Neg (NEG) Urine Urobilinogen Dipstick 0.2 mg/dL (0.2 mg/dL) Urine Leukocyte Esterase Neg (NEG) Urine RBC 0 /HPF (0-2) Urine WBC Occ /HPF (0-4) Urine Squamous Epithelial Cells Occ /LPF Urine Bacteria Few /HPF (0-FEW) Urine Opiates Screen Pos (NEG) Urine Methadone Screen Neg (NEG) Urine Barbiturates Neg (NEG) Urine Phencyclidine Screen Neg (NEG) Urine Amphetamine/Methamphetamine Neg (NEG) Urine Benzodiazepines Screen Pos (NEG) Urine Cocaine Screen Neg (NEG) Urine Cannabinoids Screen Neg (NEG) Urine Ethyl Alcohol Neg (NEG) Creatine Kinase 1603 U/L (26-192) Test 10/05/16 05:48 10/06/16 07:07 White Blood Count 6.9 x10^3/uL (4.0-11.0) 8.2 x10^3/uL (4.0-11.0) Red Blood Count 3.61 x10^6/uL (3.50-5.40) 3.59 x10^6/uL (3.50-5.40) Hemoglobin 12.2 g/dL (12.0-15.5) 12.3 g/dL (12.0-15.5) Hematocrit 36.5 % (36.0-47.0) 37.3 % (36.0-47.0) Mean Corpuscular Volume 101 fL (79-100) 104 fL (79-100) Mean Corpuscular Hemoglobin 34 pg (25-35) 34 pg (25-35) Mean Corpuscular Hemoglobin Concent 33 g/dL (31-37) 33 g/dL (31-37) Red Cell Distribution Width 14.9 % (11.5-14.5) 15.7 % (11.5-14.5) Platelet Count 212 x10^3/uL (140-400) 205 x10^3/uL (140-400) Neutrophils (%) (Auto) 71 % (31-73) 90 % (31-73) Lymphocytes (%) (Auto) 20 % (24-48) 6 % (24-48) Monocytes (%) (Auto) 8 % (0-9) 3 % (0-9) Eosinophils (%) (Auto) 1 % (0-3) 0 % (0-3) Basophils (%) (Auto) 1 % (0-3) 0 % (0-3) Neutrophils # (Auto) 4.9 x10^3uL (1.8-7.7) 7.4 x10^3uL (1.8-7.7) Lymphocytes # (Auto) 1.4 x10^3/uL (1.0-4.8) 0.5 x10^3/uL (1.0-4.8) Monocytes # (Auto) 0.6 x10^3/uL (0.0-1.1) 0.3 x10^3/uL (0.0-1.1) Eosinophils # (Auto) 0.1 x10^3/uL (0.0-0.7) 0.0 x10^3/uL (0.0-0.7) Basophils # (Auto) 0.0 x10^3/uL (0.0-0.2) 0.0 x10^3/uL (0.0-0.2) Sodium Level 145 mmol/L (136-145) 146 mmol/L (136-145) Potassium Level 3.6 mmol/L (3.5-5.1) 4.4 mmol/L (3.5-5.1) Chloride Level 112 mmol/L (98-107) 113 mmol/L (98-107) Carbon Dioxide Level 25 mmol/L (21-32) 21 mmol/L (21-32) Anion Gap 8 (6-14) 12 (6-14) Blood Urea Nitrogen 11 mg/dL (7-20) 10 mg/dL (7-20) Creatinine 1.1 mg/dL (0.6-1.0) 1.1 mg/dL (0.6-1.0) Estimated GFR (Cockcroft-Gault) 50.0 50.0 BUN/Creatinine Ratio 10 (6-20) 9 (6-20) Glucose Level 103 mg/dL (70-99) 138 mg/dL (70-99) Calcium Level 8.2 mg/dL (8.5-10.1) 8.7 mg/dL (8.5-10.1) Total Bilirubin 0.3 mg/dL (0.2-1.0) 0.2 mg/dL (0.2-1.0) Aspartate Amino Transf (AST/SGOT) 33 U/L (15-37) 22 U/L (15-37) Alanine Aminotransferase (ALT/SGPT) 28 U/L (14-59) 27 U/L (14-59) Alkaline Phosphatase 105 U/L (46-116) 106 U/L (46-116) Creatine Kinase 1106 U/L (26-192) 492 U/L (26-192) Total Protein 6.4 g/dL (6.4-8.2) 6.4 g/dL (6.4-8.2) Albumin 3.0 g/dL (3.4-5.0) 3.2 g/dL (3.4-5.0) Albumin/Globulin Ratio 0.9 (1.0-1.7) 1.0 (1.0-1.7) Segmented Neutrophils % 89 % (35-66) Band Neutrophils % 4 % (0-9) Lymphocytes % 6 % (24-48) Monocytes % 1 % (0-10) Platelet Estimate Adequate (ADEQUATE) Polychromasia Slight Anisocytosis Slight Brief Hospital Course Ms. Muir is a 66 old FEMALEwho presented with CHEST PAIN AND SOB. SHE HAD AN ELEVATED D DIMER BUT HER SCAN WAS NEGATIVE FOR PE. THE BULK OF HER PROBLEM WASHER COPD. SHE WAS GIVEN IV STEROIDS, DOXYCYCLINE, BREATHING TREATMENTS AND OXYGEN. SHE CONTINUED TO REQUIRE OXYGEN AND HAS BEEN ON OXYGEN IN THE PAST AND HAS REFUSED TO WEAR IT AT HOME. WHEN TAKEN OFF HER OXYGEN HER SATURATION WENT DOWN TO 89%. SHE WAS COUNSELED REGARDING HER NEED FOR OXYGEN. SHE HAS QUIT SMOKING. WI WAS RULED OUT AND HER CHEST PAIN WAS CCOSTOCHONDRITIS. PE: IN NO RESPIRATORY DISTRESS, TONGUE MOIST, LUNGS CLEAR WITHOUT WHEEZING, CVRRR. Discharge Information Condition at Discharge: Improved Disposition/Orders: D/C to Home w/ HH Dischare Medications Current Medications Aspirin (Children'S Aspirin) 324 mg 1X ONCE PO Last administered on 10/04/16 10:33; Start 10/04/16 at 10:45; Stop 10/04/16 at 10:46; Status DC Nitroglycerin (Nitrostat) 0.4 mg PRN Q5MIN PRN SL CP RATING > 1/10 Last administered on 10/04/16 10:34; Start 10/04/16 at 10:15; Stop 10/05/16 at 10:14 ; Status DC Morphine Sulfate (Morphine 2mg Syringe) 2 mg PRN Q15MIN PRN IV/SQ PAIN GREATER THAN 3/10 Last administered on 10/04/16 10:36; Start 10/04/16 at 10:15; Stop at 20:16; Status DC Albuterol/ Ipratropium (Duoneb) 3 ml 1X ONCE NEB Last administered on 10:30; Start 10/04/16 at 10:45; Stop 10/04/16 at 10:46; Status DC Methylprednisolone Sodium Succinate (SOLU-Medrol 125MG VIAL) 125 mg 1X ONCE IV Last administered on 10/04/16 10:35; Start 10/04/16 at 10:45; Stop 10/04/16 at 10:46; Status DC Sodium Chloride 1,000 ml @ 1,000 mls/hr Q1H IV Last administered on 10/04/16 11:30; Start 10/04/16 at 11:30; Stop 10/04/16 at 12:29; Status DC Albuterol/ Ipratropium (Duoneb) 3 ml RTQID NEB Last administered on 10/05/16 11:35; Start 10/04/16 at 13:00; Stop 10/05/16 at 12:59; Status DC Albuterol Sulfate (Ventolin) 2.5 mg PRN Q2HR PRN NEB SHORTNESS OF BREATH; Start 10/04/16 at 12:45; Stop 10/04/16 at 18:41; Status DC Sodium Chloride 1,000 ml @ 1,000 mls/hr 1X ONCE IV Last administered on 13:58; Start 10/04/16 at 12:45; Stop 10/04/16 at 13:44; Status DC Sodium Chloride 1,000 ml @ 100 mls/hr Q10H IV Last administered on 10/06/16 02:23; Start 10/04/16 at 14:00; Stop 10/06/16 at 08:13; Status DC Enoxaparin Sodium (Lovenox 80mg Syringe) 70 mg Q12HR SQ Last administered on 17:31; Start 10/04/16 at 16:30; Stop 10/04/16 at 17:35; Status DC Enoxaparin Sodium (Lovenox) 40 mg Q24H SQ Last administered on 10/06/16 08:09 ; Start 10/05/16 at 09:00 Methylprednisolone Sodium Succinate (SOLU-Medrol 40MG VIAL) 40 mg Q12HR IV Last administered on 10/05/16 08:09; Start 10/05/16 at 06:00; Stop 10/05/16 at 08:26; Status DC Acetaminophen (Tylenol) 325 mg PRN Q4HRS PRN PO PAIN / TEMP Last administered on 10/05/16 08:20; Start 10/04/16 at 18:30 Albuterol Sulfate (Ventolin) 2.5 mg PRN Q6HRS PRN NEB SHORTNESS OF BREATH; Start 10/04/16 at 18:30 Colesevelam HCl (Welchol) 625 mg TIDWMEALS PO Last administered on 10/06/16 12 :11; Start 10/05/16 at 08:00 Cyanocobalamin (Vitamin B-12) 2,500 mcg DAILY PO Last administered on 08:07; Start 10/05/16 at 09:00 Lamotrigine (LaMICtal) 200 mg BID PO Last administered on 10/06/16 08:08; Start 10/04/16 at 21:00 Meclizine HCl (Antivert) 12.5 mg PRN TID PRN PO DIZZINESS; Start 10/04/16 at 18 :30 Sertraline HCl (Zoloft) 200 mg DAILY PO Last administered on 10/06/16 08:08; Start 10/05/16 at 09:00 Zolpidem Tartrate (Ambien) 5 mg PRN QHS PRN PO INSOMNIA Last administered on 20:24; Start 10/04/16 at 18:30 Alprazolam (Xanax) 1 mg PRN TID PRN PO ANXIETY Last administered on 10/06/16 12:13; Start 10/04/16 at 18:45 Pantoprazole Sodium (Protonix) 40 mg DAILY PO Last administered on 10/06/16 08 :08; Start 10/05/16 at 09:00 Cetirizine HCl (ZyrTEC) 10 mg DAILY PO Last administered on 10/06/16 08:07; Start 10/05/16 at 09:00 Melatonin 3 mg PRN QHS PRN PO INSOMNIA; Start 10/04/16 at 18:45 Quetiapine Fumarate (SEROquel) 200 mg DAILY PO Last administered on 10/06/16 08:08; Start 10/05/16 at 09:00 Quetiapine Fumarate (SEROquel) 600 mg HS PO Last administered on 10/05/16 20: 21; Start 10/04/16 at 21:00 Latanoprost (Xalatan) 1 drop QHS OU ; Start 10/04/16 at 21:00 Morphine Sulfate (Morphine 2mg Syringe) 2 mg PRN Q4HRS PRN IV PAIN Last administered on 10/05/16 06:01; Start 10/04/16 at 20:15; Stop 10/05/16 at 08:31 ; Status DC Lidocaine (Lidoderm) 1 patch DAILY TD Last administered on 10/06/16 08:09; Start 10/04/16 at 20:30 Methylprednisolone Sodium Succinate (SOLU-Medrol 125MG VIAL) 60 mg Q8HRS IV Last administered on 10/06/16 05:43; Start 10/05/16 at 14:00 Acetaminophen (Tylenol) 650 mg Q8HRS PO Last administered on 10/06/16 05:42; Start 10/05/16 at 14:00 Acetaminophen/ Hydrocodone Bitart (Lortab 7.5/325) 1 tab PRN Q6HRS PRN PO PAIN Last administered on 10/06/16 08:15; Start 10/05/16 at 08:30 Doxycycline Hyclate (Vibra-Tab) 100 mg BID PO Last administered on 10/06/16 08 :07; Start 10/05/16 at 12:30 Albuterol/ Ipratropium (Duoneb) 3 ml RTQID NEB Last administered on 10/06/16 12:05; Start 10/05/16 at 20:00 Active Scripts Active Albuterol Sulfate Neb Soln (Albuterol Sulfate) 2.5 Mg/3 Ml Vial.neb 2.5 Mg NEB PRN Q6HRS PRN Reported Advair 250-50 Diskus (Fluticasone/Salmeterol) 1 Each Disk.w.dev 1 Puff IH BID Spiriva (Tiotropium Burt) 18 Mcg Cap.w.dev 1 Cap IH DAILY Travatan Z (Travoprost) 5 Ml Drops 1 Drop EACHEYE QHS Welchol (Colesevelam Hcl) 625 Mg Tablet 625 Mg PO TID Melatonin 1 Mg Tablet.er 2 Mg PO HS PRN Tylenol (Acetaminophen) 325 Mg Tablet 1 Tab PO PRN Q4HRS PRN Zenobia Allergy (Fexofenadine Hcl) 180 Mg Tablet 1 Tab PO DAILY Meclizine Hcl 12.5 Mg Tablet 1 Tab PO TID PRN Vitamin B-12 (Cyanocobalamin (Vitamin B-12)) 1,000 Mcg Tablet 2.5 Tab PO DAILY Nexium Capsule (Esomeprazole Magnesium) 40 Mg Capsule.dr 1 Cap PO DAILY Proair Hfa Inhaler (Albuterol Sulfate) 8.5 Gm Hfa.aer.ad 1 Puff INH Q4HRS PRN NEXT DOSE DUE: DATE: TODAY TIME: IF AND WHEN NEEDED Sertraline Hcl 100 Mg Tablet 200 Mg PO DAILY NEXT DOSE DUE: DATE: RESTART TODAY TIME: WHEN YOU GET HOME NEXT DOSE DUE: DATE: TIME: Zolpidem Tartrate 5 Mg Tablet 5 Mg PO HS PRN NEXT DOSE DUE: DATE: TONITE TIME: AT BEDTIME IF NEEDED NEXT DOSE DUE: DATE: TIME: Alprazolam 1 Mg Tablet 1 Mg PO PRN TID PRN NEXT DOSE DUE: DATE: TODAY TIME: IF AND WHEN NEEDED NEXT DOSE DUE: DATE: TIME: Seroquel Xr (Quetiapine Fumarate) 200 Mg Tab.er.24h 200 Mg PO DAILY NEXT DOSE DUE: DATE: RESTART TODAY TIME: WHEN YOU GET HOME NEXT DOSE DUE: DATE: TIME: Seroquel Xr (Quetiapine Fumarate) 200 Mg Tab.er.24h 600 Mg PO HS NEXT DOSE DUE: DATE: TODAY TIME: AT BEDTIME NEXT DOSE DUE: DATE: TIME: Lamictal (Lamotrigine) 100 Mg Tablet 200 Mg PO BID NEXT DOSE DUE: DATE: RESTART TODAY TIME: WHEN YOU GET HOME NEXT DOSE DUE: DATE: TIME: Patient Instructions Patient Instuctions hoME OXYGEN, PREDNISONE TAPER AND RESUME INHALERS. 5 MORE DAYS OF DOXYCYCLINE. MANDEEP GARCIA DO Oct 06, 2016 12:36
== END 2016-10-06 13:06 | disposition home health service (06) | DRG 189 ==
LOC: ER 10:03 → 1 SOUTH 11:52
PROVIDERS: ADMIT Family Medicine; ATTEND Family Medicine
DX: J96.00 Acute respiratory failure, unspecified whether with hypoxia or hypercapnia (principal); J44.1 Chronic obstructive pulmonary disease with (acute) exacerbation; M62.82 Rhabdomyolysis; N17.9 Acute kidney failure, unspecified; M94.0 Chondrocostal junction syndrome [Tietze]; F31.9 Bipolar disorder, unspecified; N18.3 Chronic kidney disease, stage 3 (moderate); R29.6 Repeated falls; F43.10 Post-traumatic stress disorder, unspecified; F25.9 Schizoaffective disorder, unspecified; F17.200 Nicotine dependence, unspecified, uncomplicated; G89.29 Other chronic pain; Z79.82 Long term (current) use of aspirin; Z79.899 Other long term (current) drug therapy; Z86.711 Personal history of pulmonary embolism; Z90.49 Acquired absence of other specified parts of digestive tract; Z98.49 Cataract extraction status, unspecified eye
CPT/HCPCS: 36415; 71010; 73030; 78582; 80053; 80307; 81001; 82550; 82607; 83690; 83735; 83880; 84484; 85007; 85027; 85379; 93005; 94640; 96361; 96374; 96375; A9540; A9558; J1650; J2270; J2920; J2930; J7620; 99285-25; G0479; J7030

== ENCOUNTER 2016-12-28 19:30 | Emergency (ER) | payer MEDICARE, OTHER ==
[~2016-12-28] VITALS: Ht 152.4 cm; Wt 72.8 kg
[~2016-12-28 19:30] MED LIST changes: +ACET325T9 PO; +DOXY100T PO; +FEXO180T81 PO; +FLUT1DIS3 IH; +MECL12.52 PO; +MELA1TAB33 PO; +TIOT18CA IH
--- NOTE | 2016-12-28 19:32 | ED.ADGEN ---
Past History Past Medical History: Bipolar, COPD, Depression, Schizophrenia, Other Past Surgical History: Cholecystectomy, Tonsillectomy, Other Smoking: Cigarettes Alcohol Use: Heavy Drug Use: None Adult General Chief Complaint Chief Complaint " I fell last week and it still hurts".. "I don't want a big work up... just a chest x-ray... " He made me come here..." " I hate coming to the hospital because you people always find something .. every time and admit me" " I am not going to be admitted" ".. I just tripped over my cocker spaniel "Browing" .. And I fell into the bedpost..." "See where I am still bruised" HPI HPI Patient is a 66 year old female who presents with above hx and complaints of dyspnea and chest pain after a fall last week. Patient has obvious contusion and ecchymosis at epigastric area and tip of the sternum.. Patient has pain on anterior and side to side compression of chest wall. No tenderness on palpation of spleen or liver. Patient does have scattered wheezes throughout. Some basilar rhonchi that clear with cough. Patient does have pain in the sternum area when she coughs and takes a deep breath. Pain can be elicited by palpation directly at area of contusion. No crepitation appreciated. Patient has extensive medical history with a bipolar disorder, COPD, depression, seizure disorder, patient has a history of non-ischemic cardiomyopathy, chest pain, schizophrenia, pulmonary embolism and frequent exacerbations of bronchitis and chronic arthritis pain. Patient has not been on any prednisone or antibiotics since September. Patient normally follows with Dr. Galvan and Dr. Mejia for pulmonary. Patient previously followed with Dr. Brown at [facility]. Patient denies any productive sputum but has had increased wheezing the last couple days. Patient is insistent that she will not be admitted wishes to be treated clinically. Patient recently started on oxygen 2 L after ambulatory testing showed the saturation. Patient has been following at [facility] health care. Review of Systems Review of Systems Constitutional: Denies fever or chills [] Eyes: Denies change in visual acuity, redness, or eye pain [] HENT: Denies nasal congestion or sore throat [] Respiratory: Complains of cough or shortness of breath [] Cardiovascular: No additional information not addressed in HPI [] GI: Denies abdominal pain, nausea, vomiting, bloody stools or diarrhea [] : Denies dysuria or hematuria [] Musculoskeletal: Denies back pain or joint pain [] Integument: Denies rash or skin lesions [] Neurologic: Denies headache, focal weakness or sensory changes [] Endocrine: Denies polyuria or polydipsia [] Family History Family History Noncontributory Current Medications Current Medications Current Medications Medications (Trade) Dose Ordered Sig/Vinay Start Time Stop Time Status Last Admin Dose Admin Albuterol/ Ipratropium (Duoneb) 3 ml 1X ONCE 12/28/16 20:00 12/28/16 20:01 DC 12/28/16 19:48 3 ML Azithromycin (Zithromax) 500 mg 1X ONCE 12/28/16 21:00 12/28/16 21:01 DC 12/28/16 21:00 500 MG Prednisone (Prednisone) 50 mg DAILY 12/29/16 09:00 12/29/16 09:00 GA Allergies Allergies Allergies Coded Allergies Type Severity Reaction Last Updated Verified No Known Drug Allergies 11/19/13 No Physical Exam Physical Exam Constitutional: Mild to moderate distress, non-toxic appearance. [] HENT: Normocephalic, atraumatic, bilateral external ears normal, oropharynx moist, no oral exudates, nose normal. [] Eyes: PERRLA, EOMI, conjunctiva normal, no discharge. [] Neck: Normal range of motion, no tenderness, supple, no stridor. [] Cardiovascular:Heart rate regular rhythm, no murmur, PMI to the left Lungs & Thorax: Bilateral breath sounds equal at apexes scattered wheezes throughout. Area of contusion in sternum tip as per history of present illness. Abdomen: Bowel sounds normal, soft, no tenderness, no masses, no pulsatile masses. Old surgery scar Skin: Warm, dry, no erythema, no rash. Poor turgor. Back: No tenderness, no CVA tenderness. Kyphosis. Extremities: No tenderness, no cyanosis, no clubbing, ROM intact, no edema. Arthritic changes. No cording appreciated in legs. Surgery scar right shoulder Neurologic: Alert and oriented X 3, normal motor function, normal sensory function, no focal deficits noted. [] Psychologic: Affect anxious but insistent that she not be admitted,, judgement poor insight, mood normal. [] Current Patient Data Vital Signs Vital Signs Date Time Temp Pulse Resp B/P (MAP) Pulse Ox O2 Delivery O2 Flow Rate FiO2 12/28/16 19:48 92 Nasal Cannula 2.5 12/28/16 19:43 97.6 63 20 EKG EKG [] Radiology/Procedures Radiology/Procedures My interpretation of chest x-ray shows chronic findings of COPD the scene findings. Does have bilateral pulmonary blebs, no obvious pneumothorax, hardware right shoulder. No free air in the diaphragm. Compression fractures of vertebral spine and osteopenia. Findings are comparable to previous chest x- rays. Patient refuses CT of chest this time. Course & Med Decision Making Course & Med Decision Making Pertinent Labs and Imaging studies reviewed. (See chart for details). Patient elects to continue her breathing treatments at home will start on prednisone 50 mg a day for 5 days. We will start on Zithromax 500 mg then 250 mg daily for 5 days. Patient encouraged follow-up her primary care and pulmonology. Patient encouraged to return if she elected to complete more of a workup. Patient seems to exhibit UCAR capacity, and awareness of risk of a limited workup. Family also aware of the risks. [] Final Impression Final Impression [] Problems: Dragon Disclaimer Dragon Disclaimer This electronic medical record was generated, in whole or in part, using a voice recognition dictation system. ILDEFONSO RENDON MD Dec 28, 2016 19:32
[2016-12-28 19:43] VITALS: BP 147/120
[2016-12-28] MEDS ORDERED: IPRATRPIUM/ALBUTEROL 0.5/2.5MG 3 ML NEBU. ONE (19:44)
[2016-12-28] MEDS ORDERED: IPRATRPIUM/ALBUTEROL 0.5/2.5MG 3 ML NEBU. NEB ONE (20:00)
[2016-12-28] MEDS ORDERED: predniSONE 10 MG TABLET PO ONE (20:00)
[2016-12-28] MEDS ORDERED: PRED50TA PO (20:55)
[2016-12-28] MEDS ORDERED: AZIT250T PO (20:57)
[2016-12-28] MEDS ORDERED: AZITHROMYCIN 250 MG TABLET. PO ONE (21:00)
--- NOTE | 2016-12-29 08:18 | RAD ---
AP portable chest radiograph 12/28/2016 Clinical History: Fall one week ago with right-sided chest pain. Shortness of breath. An AP portable erect digital radiograph of the chest was obtained. Comparison study is dated 10/04/2016. A side plate and multiple bone screws overlies the proximal right humerus, unchanged. The cardiac silhouette is normal in size. The thoracic aorta is mildly tortuous. Atherosclerotic calcification of the thoracic aorta is seen. Emphysematous changes are seen involving both lungs. There is a small to moderate-sized hiatal hernia. No acute pulmonary infiltrate is seen. No pleural effusion or pneumothorax is noted. The osseous structures are unchanged. Impression: No acute abnormality is seen.
[2016-12-29] MEDS ORDERED: predniSONE 10 MG TABLET PO SCH (09:00)
== END 2016-12-28 21:10 | disposition home or self-care (01) ==
LOC: ER 19:30
DX: S20.219A Contusion of unspecified front wall of thorax, initial encounter (principal); S30.1XXA Contusion of abdominal wall, initial encounter; J44.9 Chronic obstructive pulmonary disease, unspecified; G40.909 Epilepsy, unspecified, not intractable, without status epilepticus; F31.9 Bipolar disorder, unspecified; F20.9 Schizophrenia, unspecified; I42.9 Cardiomyopathy, unspecified; M19.90 Unspecified osteoarthritis, unspecified site; F17.210 Nicotine dependence, cigarettes, uncomplicated; F10.10 Alcohol abuse, uncomplicated; Z86.711 Personal history of pulmonary embolism; W01.0XXA Fall on same level from slipping, tripping and stumbling without subsequent striking against object, initial encounter; Y93.89 Activity, other specified; Y99.8 Other external cause status; Y92.89 Other specified places as the place of occurrence of the external cause
CPT/HCPCS: 71020; 94640; 99284; J0456; J7512; J7620; 99283

== ENCOUNTER → 2020-05-29 | Outpatient (CLI) | payer MEDICARE, OTHER ==
[~2020-05-29] MED LIST changes: +ALBU2.5V8 INH; -ALBU8.5H8 INH; +CYAN-25 PO; -CYAN10005 PO; -FEXO-149 PO; +HYDR-2155 PO; -HYDR-2758 PO; +MECL-75 PO; -MECL12.52 PO; +MECL12.582 PO; -MECL25TA3 PO; -MONT10TA6 PO; +MONT10TA80 PO; +MULT-445 PO; -MULT1TAB52 PO; +PRED50TA PO; -QUET200T6 PO; +QUET200T7 PO; +SERT-269 PO; -SERT100T8 PO; -ZOLP12.54 PO; +ZOLP12.56 PO; +[UNRECOGNIZED DRUG - CODE] PO
--- NOTE | 2020-05-29 13:14 | RAD ---
XR [id number]_LT 1-2 VIEWS History: LEFT KNEE PAIN Comparison: None. Technique: 2 views of left knee. Findings: There is no evidence for fracture. Alignment is normal. No destructive osseous lesions are seen. Minimal tricompartmental degenerative changes. No significant joint effusion. Soft tissues are normal. Impression: 1. Minimal degenerative changes of the left knee without acute osseous abnormality. Electronically signed by: Tyrese Giordano MD (05/29/2020 1:11 PM) [facility]
== END ==
LOC: PMG 12:47
PROVIDERS: ATTEND Physician Assistant
DX: M17.12 Unilateral primary osteoarthritis, left knee (principal)
CPT/HCPCS: 73560

== ENCOUNTER 2020-07-01 12:28 | Emergency (ER) | payer MEDICARE, OTHER ==
[~2020-07-01] VITALS: Ht 157.5 cm; Wt 70.9 kg
[2020-07-01 12:48] VITALS: BP 149/89
[2020-07-01] MEDS ORDERED: HYDR-2155 PO (12:57)
--- NOTE | 2020-07-01 12:58 | PHYS DOC ---
Past History Past Medical History: Bipolar, COPD, Depression, Schizophrenia, Other Past Surgical History: Cholecystectomy, Tonsillectomy, Other Smoking: Cigarettes Alcohol Use: Heavy Drug Use: None General Adult EDM: Chief Complaint: SHOULDER INJURY HPI: HPI: Patient is a 70-year-old female who presents with right shoulder pain. Patient states that pain started a couple weeks ago. Patient denies any new injury. Patient has had shoulder surgery in the past. Patient saw her PCP last week who referred her to Ortho, she has an appointment on . Patient also starts PT on Friday. Patient states "I am needing something for pain". Patient states that she is been taking Motrin with no relief. Review of Systems: Review of Systems: Constitutional: Denies fever or chills Eyes: Denies change in visual acuity HENT: Denies nasal congestion or sore throat Respiratory: Denies cough or shortness of breath Cardiovascular: Denies chest pain or edema GI: Denies abdominal pain, nausea, vomiting, bloody stools or diarrhea : Denies dysuria Musculoskeletal: Reports right shoulder pain, denies injury Integument: Denies rash Neurologic: Denies headache, focal weakness or sensory changes Endocrine: Denies polyuria or polydipsia Lymphatic: Denies swollen glands Psychiatric: Denies depression or anxiety Allergies: Allergies: Allergies Coded Allergies Type Severity Reaction Last Updated Verified No Known Drug Allergies 11/19/13 No Physical Exam: PE: Constitutional: Well developed, well nourished, no acute distress, non-toxic appearance. [] HENT: Normocephalic, atraumatic, bilateral external ears normal, oropharynx moist, no oral exudates, nose normal. [] Eyes: PERRLA, EOMI, conjunctiva normal, no discharge. [] Neck: Normal range of motion, no tenderness, supple, no stridor. [] Cardiovascular:Heart rate regular rhythm, no murmur [] Lungs & Thorax: Bilateral breath sounds clear to auscultation [] Abdomen: Bowel sounds normal, soft, no tenderness, no masses, no pulsatile masses. [] Skin: Warm, dry, no erythema, no rash. [] Back: No tenderness, no CVA tenderness. [] Extremities: Right shoulder tenderness, ROM intact, no edema. [] Neurologic: Alert and oriented X 3, normal motor function, normal sensory function, no focal deficits noted. [] Psychologic: Affect normal, judgement normal, mood normal. [] EKG: EKG: [] Radiology/Procedures: Radiology/Procedures: []EXAM: Right shoulder, 3 views. HISTORY: Pain. COMPARISON: None. FINDINGS: 3 views of the right shoulder obtained. There is internal fixation of a proximal humeral fracture with a plate and multiple screws. There is no evidence of instrumentation loosening. There is acromioclavicular joint space narrowing and spurring. There is a chronic appearing rib fractures. There is suspected right upper lobe pleural plaque also scarring and bullous emphysema. IMPRESSION: 1. Internal fixation of a right partial humeral fracture. No periprosthetic fracture is seen. 2. Mild acromioclavicular joint osteoarthritis. 3. 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 Electronically signed by: Lilly Obrien MD (07/01/2020 1:39 PM) [id number] Heart Score: C/O Chest Pain: No Risk Factors: Risk Factors: DM, Current or recent (<one month) smoker, HTN, HLP, family history of CAD, obesity. Risk Scores: Score 0 - 3: 2.5% MACE over next 6 weeks - Discharge Home Score 4 - 6: 20.3% MACE over next 6 weeks - Admit for Clinical Observation Score 7 - 10: 72.7% MACE over next 6 weeks - Early Invasive Strategies Course & Med Decision Making: Course & Med Decision Making Pertinent Labs and Imaging studies reviewed. (See chart for details) [] Patient presents with right shoulder pain that started a few weeks ago. Patient has had past surgery on that right shoulder. Patient had an x-ray last week from her PCP. Patient was told that she has arthritis in her right shoulder and is scheduled to see orthopedics on and PT on Friday. Patient is requesting a second x-ray due to an increase in pain. Patient has been using Motrin at home but denies any pain relief. Patient states that she is here to get pain medication until she is able to see her Ortho on . Range of motion is intact. Patient does have pain when she tries to lift her arm above her head. No swelling noted, neuro intact. Shoulder x-rays negative for fracture. Hydrocodone given for pain. Patient sent home with a prescription for hydrocodone until she can follow-up with her PCP next week. Instructed patient to use ice to the affected area, Ibuprofen, rest. Patient agrees, and is okay with discharge plan. Vladimir Disclaimer: Vladimir Disclaimer: This electronic medical record was generated, in whole or in part, using a voice recognition dictation system. Departure Departure: Impression: Primary Impression: Right shoulder pain Qualified Codes: M25.511 - Pain in right shoulder Disposition: HOME / SELF CARE / HOMELESS Condition: STABLE Referrals: DEVAN PERERA (PCP) Patient Instructions: RICE - Routine Care for Injuries, Shoulder Pain, [id number] Additional Instructions: You are seen in the emergency room for right shoulder pain. Your shoulder x-ray was negative for any acute fracture. I am writing a prescription for pain medication to take at home until you can follow-up with your PCP on Friday. Try to rest your arm as much as possible, use ice to the affected area. You can also use ibuprofen at home for discomfort. Please follow-up with your PCP on Friday for further pain management. Please return the emergency room if you have worsening symptoms or concerns. EMERGENCY DEPARTMENT GENERAL DISCHARGE INSTRUCTIONS Thank you for coming to [facility] (ED) today and trusting us with you care. We trust that you had a positivie experience in our Emergency Department. If you wish to speak to the department management, you may call the director at [phone]. YOUR FOLLOW UP INSTRUCTIONS ARE FOLLOWS: 1. Do you have a private Doctor? If you do not have a private doctor, please ask for a resource list of physicians or clinics that may be able to assist you with follow up care. 2. The Emergency Physician has interpreted your x-rays. The X-Ray specialist will also review them. If there is a change in the findings, you will be notified in 48 hours when at all possible. 3. A lab test or culture has been done, your results will be reviewed and you will be notified if you need a change in treatment. ADDITIONAL INSTRUCTIONS AND INFORMATION: 1. Your care today has been supervised by a physician who is specially trained in emergency care. Many problems require more than one evaluation for a complete diagnosis and treatment. We recommend that you schedule your follow up appointment as recommended to ensure complete treatment of you illness or injury. If you are unable to obtain follow up care and continue to have a problem, or if your condition worsens, we recommend that you return to the ED. 2. We are not able to safely determine your condition over the phone nor are we able to give sound medical advice over the phone. For these safety reasons, if you call for medical advice we will ask you to come to the ED for further evaluation. 3. If you have any questions regarding these discharge instructions please call the ED at [phone]. SAFETY INFORMATION: In the interest of safety, wellness, and injury prevention; we encourage you to wear your sealbelt, if you smoke; quite smoking, and we encourage family to use a prote ctive helmet for bicycling and other sporting events that present an increased risk for head injury. IF YOUR SYMPTOMS WORSEN OR NEW SYMPTOMS DEVELOP, OR YOU HAVE CONCERNS ABOUT YOUR CONDITION; OR IF YOUR CONDITION WORSENS WHILE YOU ARE WAITING FOR YOUR FOLLOW UP APPOINTMENT; EITHER CONTACT YOUR PRIMARY CARE DOCTOR, THE PHYSICIAN WHOSE NAME AND NUMBER YOU WERE GIVEN, OR RETURN TO THE ED IMMEDIATELY. Scripts Hydrocodone Bit/Acetaminophen (HYDROCODONE-APAP 5-325 ) 1 Each Tablet 1 TAB PO PRN Q6HRS PRN for PAIN for 4 Days, #3 TAB 0 Refills Prov: LEO NAVARRETE APRN 07/01/20 LEO NAVARRETE APRN Jul 01, 2020 12:58
[2020-07-01] MEDS ORDERED: HYDROcodone/APAP 5/325MG 1 TAB TABLET PO ONE (13:15)
--- NOTE | 2020-07-01 13:42 | RAD ---
EXAM: Right shoulder, 3 views. HISTORY: Pain. COMPARISON: None. FINDINGS: 3 views of the right shoulder obtained. There is internal fixation of a proximal humeral fr acture with a plate and multiple screws. There is no evidence of instrumentation loosening. There is acromioclavicular joint space narrowing and spurring. There is a chronic appearing rib fractures. The re is suspected right upper lobe pleural plaque also scarring and bullous emphysema. IMPRESSION: 1. Internal fixation of a right partial humeral fracture. No periprosthetic fracture is seen. 2. Mild acromioclavicular joint osteoarthritis. 3. 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 Electronically signed by: Lilly Obrien MD (07/01/2020 1:39 PM) [id number]
== END 2020-07-01 14:09 | disposition home or self-care (01) ==
LOC: ER 12:28
DX: M25.511 Pain in right shoulder (principal); M19.011 Primary osteoarthritis, right shoulder; F31.9 Bipolar disorder, unspecified; J44.9 Chronic obstructive pulmonary disease, unspecified; F20.9 Schizophrenia, unspecified; F17.210 Nicotine dependence, cigarettes, uncomplicated; Z98.890 Other specified postprocedural states; F10.20 Alcohol dependence, uncomplicated; Y90.9 Presence of alcohol in blood, level not specified
CPT/HCPCS: 73030; 99284

== ENCOUNTER 2020-07-08 12:29 | Emergency (ER) | payer MEDICARE, OTHER ==
[~2020-07-08] VITALS: Ht 157.5 cm; Wt 70.9 kg
[2020-07-08 12:29] VITALS: BP 145/67
--- NOTE | 2020-07-08 13:22 | PHYS DOC ---
Past History Past Medical History: COPD Past Surgical History: Cholecystectomy, Tonsillectomy, Other Additional Past Surgical Histo: R SHOULDER REPAIR AND HARDWARE Smoking: Cigarettes Alcohol Use: Heavy Drug Use: None Adult General Chief Complaint Chief Complaint: PAIN CONTROL HPI HPI Patient is a female with history of COPD on supplemental oxygen as needed who presents to the ED today complaining of 10 out of 10 buttocks pain after falling on Friday last week. Patient states she was in a car ride and fell. Denies any loss of consciousness, denies hitting her head on the ground, denies being on any anticoagulants. Describes the pain as throbbing and constant worse on sitting. Denies anything relieving the pain. Denies any pain radiating to bilateral lower extremities, denies any loss of bowel/bladder function Of note she was seen in the ED on Friday and never mentioned she fell. She was supposed to follow-up with her own PCP and never followed up. Nursing staff report a family member called the ED prior to coming requesting more hy drocodone. Review of Systems Review of Systems Constitutional: Denies fever or chills [] GI: Denies abdominal pain, nausea, vomiting, bloody stools or diarrhea [] : Denies dysuria or hematuria [] Musculoskeletal: Reports buttocks pain Integument: Denies rash or skin lesions [] Neurologic: Denies headache, focal weakness or sensory changes [] All other systems were reviewed and found to be within normal limits, except as documented in this note. Allergies Allergies Allergies Coded Allergies Type Severity Reaction Last Updated Verified No Known Drug Allergies 11/19/13 No Physical Exam Physical Exam Constitutional: Well developed, well nourished, no acute distress, non-toxic appearance. [] HENT: Normocephalic, atraumatic, bilateral external ears normal, oropharynx moist, no oral exudates, nose normal. [] Eyes: PERRLA, EOMI, conjunctiva normal, no discharge. [] Neck: Normal range of motion, no tenderness, supple, no stridor. [] Cardiovascular:Heart rate regular rhythm, no murmur [] Lungs & Thorax: Bilateral breath sounds clear to auscultation [] Abdomen: Bowel sounds normal, soft, no tenderness, no masses, no pulsatile masses. [] Skin: Warm, dry, no erythema, no rash. [] Back: Bruising noted to the left flank region. Bruising also noted to the left buttock diffuse paraspinal muscle tenderness to left buttock, no midline thoracic or lumbar spine tenderness, no midline cervical spine tenderness. No CVA tenderness. [] Extremities: No tenderness, no cyanosis, no clubbing, ROM intact, no edema. [] Neurologic: Alert and oriented X 3, normal motor function, normal sensory function, no focal deficits noted. [] Psychologic: Affect normal, judgement normal, mood normal. [] Current Patient Data Vital Signs Vital Signs Date Time Temp Pulse Resp B/P (MAP) Pulse Ox O2 Delivery O2 Flow Rate FiO2 07/08/20 12:29 97.8 88 18 145/67 (93) 99 Nasal Cannula 2.0 EKG EKG [] Radiology/Procedures Radiology/Procedures []PROCEDURE: LUMBAR SPINE 2-3V Three view thoracic spine History: Pain status post fall AP, swimmer's projection and lateral views of the thoracic spine were obtained. The vertebral bodies are aligned. There is moderate loss of stature of T7 wedge- shaped deformity due to impaction of superior endplate with loss of stature anteriorly to approximately 60 percent. There has been prior shoulder arthroplasty. Intervertebral disc heights are preserved. Impression: Old T7 vertebral compression fracture unchanged from the December 28, 2016 2 view chest. No acute findings. End Impression Three view lumbosacral spine History: Pain AP, coned-down lateral and lateral views of the lumbosacral spine were obtained. There is marked degenerative changes at L4-5 with loss of intervertebral disc material and marginal spurring at endplates and vacuum changes. The vertebral bodies aligned. As no loss vertebral stature. IMPRESSION: No acute findings. End Impression Sacrum coccyx 3 views History: Pain AP views of the sacrum and coccyx was obtained as well as a lateral view. The visualized osseous structures appear normal. This is a difficult area to evaluate. There is some obscuration of bony detail of the sacrum due to overlying bowel gas. There is degenerative changes left hip with marginal spurring. Impression: No acute bony abnormality noted. Electronically signed by: Aleksandr Lin III, MD (07/08/2020 2:16 PM) [facility] DICTATED AND SIGNED BY: ALEKSANDR LIN III, MD DATE: 07/08/20 2804 CC: YOEL BARRAGAN APRN; DEVAN PERERA ~MTH0 0 Heart Score C/O Chest Pain: N/A Risk Factors: Risk Factors: DM, Current or recent (<one month) smoker, HTN, HLP, family hi story of CAD, obesity. Risk Scores: Risk Factors: DM, Current or recent (<one month) smoker, HTN, HLP, family history of CAD, obesity. Course & Med Decision Making Course & Med Decision Making Pertinent Labs and Imaging studies reviewed. (See chart for details) This is a 70-year-old female patient presenting to the ED today complaining of the left buttock pain after falling a week ago. Of note she was seen in the ED on Friday and never mentioned she fell. She was supposed to follow-up with her own PCP and never followed up. Nursing staff report a family member already called the ED prior to coming requesting more hydrocodone. X-rays of thoracic, lumbar and sacrum with coccyx are negative for any acute findings. Discharge home. Follow-up with his own PCP. Patient asked if I can give her any hydrocodone for home use. K Tracs shows patient had hydrocodone filled on July 01, 2020, and on June 23, 2019 she had alprazolam 30-day supply, on June 15, 2019 when she had hydrocodone 7-day supply and on May 23, 2020 she filled gabapentin 90-day supply At this point we will not give her any narcotic prescriptions. She will get a prescription for Flexeril. Dragon Disclaimer Dragon Disclaimer This electronic medical record was generated, in whole or in part, using a voice recognition dictation system. Departure Departure: Impression: Primary Impression: Fall Additional Impressions: Lumbar contusion Contusion of thoracic wall Disposition: HOME / SELF CARE / HOMELESS Condition: STABLE Referrals: DEVAN PERERA (PCP) Follow-up next week Patient Instructions: Contusion, Fall Prevention and Home Safety Additional Instructions: You were evaluated in the emergency room for pain after falling a week ago. Your x-rays of the mid back, low back, and sacrum with coccyx are negative for any acute findings. Please follow-up with your doctor next week. Apply ice to the affected areas Scripts Cyclobenzaprine Hcl (CYCLOBENZAPRINE HCL) 10 Mg Tablet 1 TAB PO TID, #15 TAB Prov: YOEL BARRAGAN APRN 07/08/20 Cyclobenzaprine Hcl (CYCLOBENZAPRINE HCL) 10 Mg Tablet 1 TAB PO TID, #15 TAB Prov: YOEL BARRAGAN DISH WASHER 07/08/20 Problem Qualifiers Primary Impression: Fall Encounter type: initial encounter Qualified Codes: W19.XXXA - Unspecified fall, initial encounter Additional Impressions: Lumbar contusion Encounter type: initial encounter Qualified Codes: S30.0XXA - Contusion of lower back and pelvis, initial encounter Contusion of thoracic wall Encounter type: initial encounter Front or back of thoracic wall: back Thoracic wall location detail: left Qualified Codes: S20.222A - Contusion of left back wall of thorax, initial encounter YOEL BARRAGAN Isabell DISH WASHER July 08, 2020 13:22
--- NOTE | 2020-07-08 14:18 | RAD ---
Three view thoracic spine History: Pain status post fall AP, swimmer's projection and lateral views of the thoracic spine were obtained. The vertebral bodies are aligned. There is moderate loss of stature of T7 wedge-shaped deformity due to impaction of superior endplate with loss of stature anteriorly to approximately 60 percent. There has been prior shoulder arthroplasty. Intervertebral disc heights are preserved. Impression: Old T7 vertebral compression fracture unchanged from the December 28, 2016 2 view chest. No acute findings. End Impression Three view lumbosacral spine History: Pain AP, coned-down lateral and lateral views of the lumbosacral spine were obtained. There is marked degenerative changes at L4-5 with loss of intervertebral disc material and marginal s purring at endplates and vacuum changes. The vertebral bodies aligned. As no loss vertebral stature. IMPRESSION: No acute findings. End Impression Sacrum coccyx 3 views History: Pain AP views of the sacrum and coccyx was obtained as well as a lateral view. The visualized osseous structures appear normal. This is a difficult area to evaluate. There is some obscuration of bony detail of the sacrum due to overlying bowel gas. There is degenerative changes le ft hip with marginal spurring. Impression: No acute bony abnormality noted. Electronically signed by: Anthony Lin III, MD (07/08/2020 2:16 PM) [facility]
[2020-07-08] MEDS ORDERED: CYCL-331 PO ×2 (14:32→14:37)
== END 2020-07-08 14:33 | disposition home or self-care (01) ==
LOC: ER 12:29
DX: S30.0XXA Contusion of lower back and pelvis, initial encounter (principal); S20.222A Contusion of left back wall of thorax, initial encounter; J44.9 Chronic obstructive pulmonary disease, unspecified; Z90.49 Acquired absence of other specified parts of digestive tract; F17.210 Nicotine dependence, cigarettes, uncomplicated; F10.20 Alcohol dependence, uncomplicated; Y90.9 Presence of alcohol in blood, level not specified; W18.39XA Other fall on same level, initial encounter; Y93.89 Activity, other specified; Y92.89 Other specified places as the place of occurrence of the external cause; Y99.8 Other external cause status
CPT/HCPCS: 72072; 72100; 72220; 99284

== ENCOUNTER → 2020-11-23 | Outpatient (CLI) | payer MEDICARE, OTHER ==
[~2020-11-23] MED LIST changes: +CYCL-331 PO; +MIRT-8 PO; -MIRT30TA3 PO
--- NOTE | 2020-11-23 11:44 | RAD ---
EXAM: DUAL ENERGY X-RAY ABSORPTIOMETRY (DEXA). HISTORY: Postmenopausal screening. FINDINGS: The lowest measured T-score is -2.6 in the lumbar spine, based on a bone mineral density of 0.871 g/cm^2. Refer to the worksheets for full detail. There has been a 14.7 percent decrease in density of the lumbar spine and 16.7 percent decrease in de nsity of the right hip compared to a study performed 11/01/2008. IMPRESSION: 1. Osteoporosis. Bone mineral density yields a T-score of -2.5 or less. Fracture risk is high. 2. FRAX report: Not calculated. 3. Significant decrease in bone mineral density compared to the baseline exam. METHODOLOGY: Dual energy x-ray absorptiometry was performed to measure bone mineral density. The foll owing analysis is based on the 2019 Official Positions of the International Society for Clinical Dens itometry: Measurements of the hips and the average of L1-L4 are preferred. When the spine and/or hip cannot be feasibly measured or interpreted, or in the setting of hyperparathyroidism, distal radial bone minera l density may be measured. The lumbar spine T-score is based on the average bone mineral density of L1-L4. In the setting of art ifact or anatomic abnormality, some lumbar levels may be excluded, and the remaining levels used for calculation. A single lumbar level is not used for diagnosis, and if only a single level is available for assessment, another anatomic site will be used to assign a diagnosis. The hip T-score is based on the bone mineral density measurement of the femoral neck or total proxima l femur of either side, whichever is lowest. Bilateral mean values are not used for diagnosis. The forearm T-score is derived from 33% of the distal radius of the nondominant forearm. Electronically signed by: Lilly Obrien MD (11/23/2020 11:41 AM) [id number]
== END ==
LOC: DXRAD 10:54
PROVIDERS: ATTEND Family Medicine
DX: M81.0 Age-related osteoporosis without current pathological fracture (principal); N95.9 Unspecified menopausal and perimenopausal disorder
CPT/HCPCS: 77080

== ENCOUNTER 2021-02-24 16:29 | Emergency (ER) | payer MEDICARE, OTHER ==
[~2021-02-24] VITALS: Ht 157.5 cm; Wt 70.9 kg
[~2021-02-24 16:29] MED LIST changes: -CITA40TA5 PO; +CITA40TA6 PO; -COLE625T12 PO; +COLE625T29 PO; -CYCL-331 PO; +CYCL10TA19 PO
[2021-02-24 16:37] VITALS: BP 151/84
[2021-02-24] MEDS ORDERED: CLIN-95 PO (17:26)
--- NOTE | 2021-02-24 17:26 | PHYS DOC ---
Past History Past Medical History: COPD Past Surgical History: Cholecystectomy, Tonsillectomy, Other Additional Past Surgical Histo: R SHOULDER REPAIR AND HARDWARE Smoking: Cigarettes Alcohol Use: Heavy Drug Use: None General Adult EDM: Chief Complaint: FOOT INJURY PAIN HPI: HPI: 71-year-old female presents with open sore and cellulitis of the left great toe. The patient has had a bunion at the base of the left great toe for some time. Yesterday or the day before the skin overlying this area ruptured and she now has erythematous and warm skin around this area and extending down her toe. Her family member who helps take care of her realize she needed to be evaluated for infection. Patient has not had a fever. She denies any other skin injuries or complaints. Review of Systems: Review of Systems: Constitutional: Denies fever or chills Eyes: Denies change in visual acuity HENT: Denies nasal congestion or sore throat Respiratory: Denies cough or shortness of breath Cardiovascular: Denies chest pain or edema GI: Denies abdominal pain, nausea, vomiting, bloody stools or diarrhea : Denies dysuria Musculoskeletal: Denies back pain or joint pain Integument: Open wound left foot, cellulitis Neurologic: Denies headache, focal weakness or sensory changes Endocrine: Denies polyuria or polydipsia Lymphatic: Denies swollen glands Psychiatric: Denies depression or anxiety Allergies: Allergies: Allergies Coded Allergies Type Severity Reaction Last Updated Verified No Known Drug Allergies 11/19/13 No Physical Exam: PE: Constitutional: Well developed, well nourished, no acute distress, non-toxic appearance. [] HENT: Normocephalic, atraumatic, bilateral external ears normal, oropharynx moist, no oral exudates, nose normal. [] Eyes: PERRLA, EOMI, conjunctiva normal, no discharge. [] Neck: Normal range of motion, no tenderness, supple, no stridor. [] Cardiovascular:Heart rate regular rhythm, no murmur [] Lungs & Thorax: Bilateral breath sounds clear to auscultation [] Abdomen: Bowel sounds normal, soft, no tenderness, no masses, no pulsatile masses. [] Skin: Erythematous, hot area of 3 cm x 7 cm at the base of the great toe on the left foot extending down to the distal interphalangeal joint. 2 cm to centimete r open skin wound [] Back: No tenderness, no CVA tenderness. [] Extremities: No tenderness, no cyanosis, no clubbing, ROM intact, no edema. [] Neurologic: Alert and oriented X 3, normal motor function, normal sensory function, no focal deficits noted. [] Psychologic: Affect normal, judgement normal, mood normal. [] Current Patient Data: Vital Signs: Vital Signs Date Time Temp Pulse Resp B/P (MAP) Pulse Ox O2 Delivery O2 Flow Rate FiO2 02/24/21 16:37 98.2 103 20 151/84 (106) 93 Nasal Cannula 3.0 EKG: EKG: [] Radiology/Procedures: Radiology/Procedures: [] Heart Score: C/O Chest Pain: N/A Risk Factors: Risk Factors: DM, Current or recent (<one month) smoker, HTN, HLP, family history of CAD, obesity. Risk Scores: Score 0 - 3: 2.5% MACE over next 6 weeks - Discharge Home Score 4 - 6: 20.3% MACE over next 6 weeks - Admit for Clinical Observation Score 7 - 10: 72.7% MACE over next 6 weeks - Early Invasive Strategies Course & Med Decision Making: Course & Med Decision Making Pertinent Labs and Imaging studies reviewed. (See chart for details) The patient appears to have had a skin rupture of a bunion on her foot that is now infected. There is no palpable abscess. I will treat her with clindamycin for 7 days. We will give the first dose in the ER. She is stable for discharge at this time. [] Dragon Disclaimer: Dragtrav Disclaimer: This electronic medical record was generated, in whole or in part, using a voice recognition dictation system. Departure Departure: Impression: Primary Impression: Cellulitis of left foot Disposition: HOME / SELF CARE / HOMELESS Condition: STABLE Referrals: DEVAN PERERA (PCP) Patient Instructions: Cellulitis, Yvuo-[id number] Scripts Clindamycin Hcl (CLINDAMYCIN HCL) 300 Mg Capsule 1 CAP PO QID for cellulitis for 7 Days, #28 CAP Prov: NICOLE CHRISTIANSEN DO 02/24/21 NICOLE CHRISTIANSEN DO Feb 24, 2021 17:26
[2021-02-24] MEDS ORDERED: CLINDAMYCIN HCL 150 MG CAPSULE PO ONE (17:30)
== END 2021-02-24 17:36 | disposition home or self-care (01) ==
LOC: ER 16:29
DX: L03.116 Cellulitis of left lower limb (principal); J44.9 Chronic obstructive pulmonary disease, unspecified; F17.210 Nicotine dependence, cigarettes, uncomplicated; F10.20 Alcohol dependence, uncomplicated; Y90.9 Presence of alcohol in blood, level not specified
CPT/HCPCS: 99283

== ENCOUNTER 2021-03-06 11:07 | Emergency (ER) | payer MEDICARE, OTHER ==
[~2021-03-06] VITALS: Ht 157.5 cm; Wt 70.9 kg
[~2021-03-06 11:07] MED LIST changes: +CLIN-95 PO
[2021-03-06 11:41] VITALS: BP 155/82
[2021-03-06] MEDS ORDERED: SULF1TAB24 PO (13:10)
[2021-03-06] MEDS ORDERED: AMOX1TAB61 PO (13:10)
--- NOTE | 2021-03-06 13:12 | PHYS DOC ---
Past History Past Medical History: COPD Past Surgical History: Cholecystectomy, Tonsillectomy, Other Additional Past Surgical Histo: R SHOULDER REPAIR AND HARDWARE Smoking: Cigarettes Alcohol Use: Heavy Drug Use: None General Adult EDM: Chief Complaint: CELLULITIS HPI: HPI: 71-year-old female returns emergency room with continued concern for cellulitis of the left foot. The patient was seen by myself a little over a week ago with cellulitis at the base of the first digit foot. She took clindamycin as directed and stated that it was getting better but then has gotten worse again after stopping the antibiotics. She did not follow-up with her primary care physician. She presents today with a normal sock directly over the wound with no dressing applied. Patient denies fever or chills. She has no other complaints this time. Review of Systems: Review of Systems: Constitutional: Denies fever or chills Eyes: Denies change in visual acuity HENT: Denies nasal congestion or sore throat Respiratory: Denies cough or shortness of breath Cardiovascular: Denies chest pain or edema GI: Denies abdominal pain, nausea, vomiting, bloody stools or diarrhea : Denies dysuria Musculoskeletal: Denies back pain or joint pain Integument: Cellulitis left foot Neurologic: Denies headache, focal weakness or sensory changes Endocrine: Denies polyuria or polydipsia Lymphatic: Denies swollen glands Psychiatric: Denies depression or anxiety Allergies: Allergies: Allergies Coded Allergies Type Severity Reaction Last Updated Verified No Known Drug Allergies 11/19/13 No Physical Exam: PE: Constitutional: Well developed, well nourished, no acute distress, non-toxic appearance. [] HENT: Normocephalic, atraumatic, bilateral external ears normal, oropharynx moist, no oral exudates, nose normal. [] Eyes: PERRLA, EOMI, conjunctiva normal, no discharge. [] Neck: Normal range of motion, no tenderness, supple, no stridor. [] Cardiovascular: Heart rate regular rhythm, no murmur [] Lungs & Thorax: Bilateral breath sounds clear to auscultation [] Abdomen: Bowel sounds normal, soft, no tenderness, no masses, no pulsatile masses. [] Skin: Erythematous, warm area with purulent drainage of the left at the base of the first digit with surrounding cellulitis. [] Back: No tenderness, no CVA tenderness. [] Extremities: No tenderness, no cyanosis, no clubbing, ROM intact, no edema. [] Neurologic: Alert and oriented X 3, normal motor function, normal sensory function, no focal deficits noted. [] Psychologic: Affect normal, judgement normal, mood normal. [] Current Patient Data: Vital Signs: Vital Signs Date Time Temp Pulse Resp B/P (MAP) Pulse Ox O2 Delivery O2 Flow Rate FiO2 03/06/21 11:41 88 18 158/82 (107) 94 Room Air EKG: EKG: [] Radiology/Procedures: Radiology/Procedures: [] Heart Score: C/O Chest Pain: N/A Risk Factors: Risk Factors: DM, Current or recent (<one month) smoker, HTN, HLP, family history of CAD, obesity. Risk Scores: Score 0 - 3: 2.5% MACE over next 6 weeks - Discharge Home Score 4 - 6: 20.3% MACE over next 6 weeks - Admit for Clinical Observation Score 7 - 10: 72.7% MACE over next 6 weeks - Early Invasive Strategies Course & Med Decision Making: Course & Med Decision Making Pertinent Labs and Imaging studies reviewed. (See chart for details) The patient appears to continue to have cellulitis. I will treat her with Bactrim and Augmentin. I have also advised and given her a phone number for podiatry. She needs to follow-up this week. She is stable for discharge at this time. [] Vladimir Disclaimer: Vladimir Disclaimer: This electronic medical record was generated, in whole or in part, using a voice recognition dictation system. Departure Departure: Impression: Primary Impression: Cellulitis of left foot Disposition: HOME / SELF CARE / HOMELESS Condition: STABLE Referrals: DEVAN PERERA (PCP) Patient Instructions: Cellulitis, [id number], Wound Care, [id number], Wound Infection, [id number] Additional Instructions: You need to follow-up with a senior grants officer for your wound care this week. You can call Dr. Kelley to make an appointment. The phone number is: [phone]. Scripts Amoxicillin/Potassium Clav (AUGMENTIN 875-125 TABLET) 1 Each Tablet 1 TAB PO BID for cellulitis for 14 Days, #28 TAB 0 Refills Prov: NICOLE CHRISTIANSEN DO 03/06/21 Sulfamethoxazole/Trimethoprim (BACTRIM DS TABLET) 1 Each Tablet 1 TAB PO BID for cellulitis for 14 Days, #28 TAB 0 Refills Prov: NICOLE CHRISTIANSEN DO 03/06/21 NICOLE CHRISTIANSEN DO Mar 06, 2021 13:12
[2021-03-06] MEDS ORDERED: HYDROcodone/APAP 5/325MG 1 TAB TABLET PO ONE (13:30)
== END 2021-03-06 13:28 | disposition home or self-care (01) ==
LOC: ER 11:07
DX: L03.116 Cellulitis of left lower limb (principal); J44.9 Chronic obstructive pulmonary disease, unspecified; F17.210 Nicotine dependence, cigarettes, uncomplicated; F10.20 Alcohol dependence, uncomplicated; Y90.9 Presence of alcohol in blood, level not specified
CPT/HCPCS: 99283

== ENCOUNTER → 2021-03-12 | Outpatient (CLI) | payer MEDICARE, OTHER ==
[2021-03-06 11:41] VITALS: BP 155/82
[~2021-03-12] MED LIST changes: +AMOX1TAB61 PO; +IOHEXOL 350 MG/ML 100 ML VIAL. IV ONE; +SULF1TAB24 PO
[2021-03-12 14:47] LABS: CREATININE 1.3 mg/dL (0.6-1.0); GFR 40.6
--- NOTE | 2021-03-13 13:53 | RAD ---
Examination: CT right foot with IV contrast HISTORY: History of skin ulcer left great toe cellulitis. COMPARISON: None available TECHNIQUE: Axial CT images of the foot were performed with IV contrast. Coronal and sagittal reformat s are performed Exposure: One or more of the following individualized dose reduction techniques were utilized for thi s examination: 1. Automated exposure control 2. Adjustment of the mA and/or kV according to patient size 3. Use of iterative reconstruction technique FINDINGS: The alignment of the tarsal joints, tarsometatarsal joints, metatarsophalangeal and interphalangeal j oints grossly appears unremarkable. Mild hallux valgus. Mild joint space loss of first MTP joint like ly degenerative changes. No obvious cortical disruption is identified. Mild soft tissue swelling iden tified about the ankle joint and the mid foot region could be secondary to edema or cellulitis. IMPRESSION: 1. Mild soft tissue swelling identified about the ankle joint and the mid foot region could be second karoline to edema or cellulitis. 2. No evidence of cortical disruption , recommend MRI or triphasic bone scan for further evaluation. Electronically signed by: Yoni Vasquez MD (03/13/2021 1:51 PM) [id number]
== END ==
LOC: CT 13:39
PROVIDERS: ATTEND Family Medicine
DX: M20.11 Hallux valgus (acquired), right foot (principal); M79.89 Other specified soft tissue disorders; L03.032 Cellulitis of left toe; L97.521 Non-pressure chronic ulcer of other part of left foot limited to breakdown of skin
CPT/HCPCS: 36415; 73701; 82565; Q9967

== ENCOUNTER → 2021-05-28 | Outpatient (CLI) | payer MEDICARE, OTHER ==
[~2021-05-28] MED LIST changes: -IOHEXOL 350 MG/ML 100 ML VIAL. IV ONE
--- NOTE | 2021-05-28 14:02 | RAD ---
XR FOOT_LEFT 3 VIEWS History: Reason: FOOT PAIN, WEIGHT BEARING / Spl. Instructions: / History: Technique: 3 views left foot Comparison: None. Findings: Hallux valgus. Mild first MTP DJD. First metatarsal soft tissue and bony bunion formation. No disloca tion. No acute fracture. Small plantar calcaneal spur. Impression: 1. Hallux valgus with first MTP DJD and first metatarsal bony bunion formation. Electronically signed by: Luciano Davis DO (05/28/2021 2:00 PM) [id number]
== END ==
LOC: LAB 09:56
PROVIDERS: ATTEND Podiatrist
DX: M19.072 Primary osteoarthritis, left ankle and foot (principal); M20.12 Hallux valgus (acquired), left foot; M81.0 Age-related osteoporosis without current pathological fracture; M77.32 Calcaneal spur, left foot; E55.9 Vitamin D deficiency, unspecified; M21.612 Bunion of left foot; Z79.899 Other long term (current) drug therapy
CPT/HCPCS: 36415; 73630; 82306; 82310; 82652

== ENCOUNTER → 2021-07-06 | Outpatient (CLI) | payer MEDICARE, OTHER ==
--- NOTE | 2021-07-06 11:57 | RAD ---
XR FOOT_LEFT 3 VIEWS 07/06/2021 11:25 AM INDICATION: Post left foot osteotomy, painful COMPARISON: None available. TECHNIQUE: 3 views of the left foot are provided. FINDINGS/ IMPRESSION: Osteotomy changes are identified involving the first metatarsal. 2 threaded screws are identified wit hin the first metatarsal. A single threaded screw is identified within the proximal phalanx of the fi rst digit. Regional soft tissue swelling is present. Overlapping cast material limits evaluation of f ine osseous detail. Electronically signed by: Rebeca Laguerre MD (07/06/2021 11:54 AM) [id number]
== END ==
LOC: RAD 11:11
PROVIDERS: ATTEND Podiatrist
DX: M79.89 Other specified soft tissue disorders (principal); M79.672 Pain in left foot; Z98.890 Other specified postprocedural states
CPT/HCPCS: 73630

== ENCOUNTER → 2021-08-03 | Outpatient (CLI) | payer MEDICARE, OTHER ==
--- NOTE | 2021-08-03 13:18 | RAD ---
XR FOOT_LEFT 3 VIEWS History: Reason: LT FOOT PAIN, F/U BUNIONECTOMY / Spl. Instructions: / History: Technique: 3 views left foot Comparison: July 06, 2021 Findings: Internal fixation healing first metatarsal osteotomy. There is increased callus formation. Osteotomy lines are still evident. Additional internal fixation healing first proximal phalanx osteotomy with i ncreased callus formation and sclerosis. The osteotomy line is still evident. No dislocation. Osteope crystal. Plantar calcaneal spur. Dorsal foot soft tissue swelling. Impression: 1. Internal fixation healing first proximal phalanx and first metatarsal osteotomies. Electronically signed by: Luciano Davis DO (08/03/2021 1:15 PM) [id number]
== END ==
LOC: RAD 12:32
PROVIDERS: ATTEND Podiatrist
DX: M85.872 Other specified disorders of bone density and structure, left ankle and foot (principal); M25.775 Osteophyte, left foot; M79.672 Pain in left foot; M79.89 Other specified soft tissue disorders
CPT/HCPCS: 73630